=== PATIENT | female | born 1970 | race Caucasian/White ===

== ENCOUNTER → 2016-08-13 | Outpatient (CLI) | payer MEDICAID ==
[2016-08-13 08:05] LABS: Basophils # (A) 0.1 k/uL (0-0.2); Basophils % (A) 1 %; CH 29.5; CHCM 32.9; Eosinophils # (A) 0.2 k/uL (0-0.7); Eosinophils % (A) 4 %; HCT 40.7 % (34.0-46.0); HDW 2.23; HGB 13.1 gm/dL (11.4-16.0); Luc # (Auto) 0.21; Luc % (Auto) 3; Lymphocytes # (A) 1.4 k/uL (1.0-4.8); Lymphocytes % (A) 23 %; MCH 29.1 pg (25.0-35.0); MCHC 32.2 g/dL (31.0-37.0); MCV 90.2 fL (80.0-100.0); Mean Platelet Volume 7.5; Monocytes # (A) 0.3 k/uL (0-1.0); Monocytes % (A) 5 %; Neutrophils # (A) 3.9 k/uL (1.3-7.7); Neutrophils % (A) 65 %; RBC 4.51 m/uL (3.80-5.40); WBC 6.1 k/uL (3.8-10.6); WBC (Perox) 6.49
[2016-08-13 11:07] LABS: Hemoglobin A1C 5.1 % (4.2-6.1)
[2016-08-13 11:54] LABS: ALT 32 U/L (9-52); AST 21 U/L (14-36); Alkaline Phosphatase 71 U/L (38-126); Anion Gap 8 mmol/L; Blood Urea Nitrogen 14 mg/dL (7-17); Carbon Dioxide 23 mmol/L (22-30); Chloride 109 mmol/L (98-107); Cholesterol 175 mg/dL (<200); Glucose 88 mg/dL (74-99); HDL Cholesterol 66 mg/dL (40-60); Non-African American GFR(MDRD) >60 (>60 ml/min/1.73 sqM); Potassium 4.2 mmol/L (3.5-5.1); Sodium 140 mmol/L (137-145); Total Bilirubin 1.1 mg/dL (0.2-1.3); Triglycerides 153 mg/dL (<150)
[2016-08-13 12:40] LABS: Vitamin B12 334 pg/mL (239-931)
== END | disposition home or self-care (01) ==
LOC: LABWHC1 07:41
PROVIDERS: ATTEND Family Medicine
DX: F32.81 Premenstrual dysphoric disorder (principal); G43.909 Migraine, unspecified, not intractable, without status migrainosus; I49.9 Cardiac arrhythmia, unspecified; Z13.220 Encounter for screening for lipoid disorders
CPT/HCPCS: 36415; 80053; 80061; 82306; 82607; 83036; 84439; 84443; 85025

== ENCOUNTER → 2017-06-14 | Outpatient (CLI) | payer MEDICAID ==
--- NOTE | 2017-06-16 08:53 | MM ---
Reason for exam: screening (asymptomatic). Last mammogram was performed 1 year and 4 months ago. History: Took hormonal contraceptives for 15 years. Physical Findings: A clinical breast exam by your physician is recommended on an annual basis and results should be correlated with mammographic findings. MG 3D Screening Mammo W/Cad Bilateral CC and MLO view(s) were taken. Prior study comparison: February 24, 2016, bilateral MG 3d screening mammo w/cad. February 22, 2015, bilateral MG 3d screening mammo w/cad. The breast tissue is extremely dense which could obscure a lesion on mammography. Finding: There is a typically benign high density, circumscribed, but partially obscured round mass in the right breast. There is a large partially circumscribed area middle left breast. New finding since February 24, 2016 and February 22, 2015. ASSESSMENT: Incomplete: need additional imaging evaluation, BI-RAD 0 RECOMMENDATION: Ultrasound of both breasts. [facility] will attempt to contact patient to return for ultrasound.
== END | disposition home or self-care (01) ==
LOC: RADMAMWWP 15:41
PROVIDERS: ATTEND Obstetrics & Gynecology
DX: Z12.31 Encounter for screening mammogram for malignant neoplasm of breast (principal)
CPT/HCPCS: 77063; 77067

== ENCOUNTER → 2017-06-18 | Outpatient (CLI) | payer MEDICAID ==
--- NOTE | 2017-06-21 09:21 | USB ---
Reason for exam: additional evaluation requested from abnormal screening. History: Took hormonal contraceptives for 15 years. Physical Findings: Nurse Summary: right breast movable palpables 11 o'clock 1 x 1cm, non-tender, left breast palpable 1 o'clock 1.5 x 2cm, movable, non-tender (nurse ts). US Breast Workup ASHLEY Right breast ultrasound includes all four quadrants, the retroareolar region and axilla. Finding demonstrates a 1.0 x 1.2 x 0.6cm oval, cystic lesion at 8 o'clock, a 0.6 x 0.6 x 0.5cm oval, cystic lesion at 8 o'clock, a 0.8 x 0.5 x 0.4cm oval, hypoechoic lesion at 8 o'clock for which a ultrasound core biopsy is recommended, a 0.6 x 0.4 x 0.3cm oval, cystic lesion at 9 o'clock, a 1.2 x 1.3 x 0.6cm oval, cystic lesion at 9 o'clock, a 0.4 x 0.4 x 0.2cm oval lesion too small to characterize at 11 o'clock and a 3.2 x 1.4 x 1.4cm axilla node. Left breast ultrasound includes all four quadrants, the retroareolar region and axilla. Finding demonstrates several oval, cystic lesions measuring 1.0 x 0.8 x 0.4cm at 12 o'clock, 1.2 x 1.0 x 0.5cm at 1 o'clock, 1.8 x 2.3 x 0.9cm at 1 o'clock and 0.3 x 0.3 x 0.3cm at 3 o'clock. These results were verbally communicated with the patient and result sheet given to the patient on 06/18/17. ASSESSMENT: Suspicious, BI-RAD 4 RECOMMENDATION: Ultrasound core biopsy of the right breast. Called Dr. Morocho with mammographic findings and has scheduled an appointment for the patient for 07/21/17 at 3:[address] Etienne. Biopsy scheduled for 06/23/17 at 12:20. PRELIMINARY REPORT CALLED AND FAXED TO DR. ETIENNE ON 06/21/17.
== END | disposition home or self-care (01) ==
LOC: RADUSWWP 07:37
PROVIDERS: ATTEND Obstetrics & Gynecology
DX: R92.8 Other abnormal and inconclusive findings on diagnostic imaging of breast (principal)

== ENCOUNTER → 2017-06-23 | Day surgery (SDC) | payer MEDICAID ==
[2017-06-23 11:42] VITALS: BP 128/81; RESP 12
[2017-06-23 12:44] VITALS: PULSE 72; TEMP 98.8
--- NOTE | 2017-06-23 14:33 | USB ---
EXAMINATION TYPE: US biopsy breast VAD RT, MG diagnostic mammo RT wo CAD, US breast aspiration single RT DATE OF EXAM: 06/23/2017 CLINICAL HISTORY: R92.8 ABN MAMMO. TECHNIQUE: Ultrasound guided core biopsy of right breast. COMPARISON: 06/18/2017 FINDINGS: The procedure of ultrasound guided core biopsy was explained to the patient. Benefits, alternatives, and risks were discussed. An informed consent was then obtained. Preprocedural timeout was performed. Preprocedural ultrasound images demonstrate increased through transmission and therefore the possibility of a complicated cyst was considered an attempted aspiration was performed prior to biopsy. The patient was placed in supine positioning for imaging and for the procedure. The overlying skin was prepped and draped in usual sterile fashion. 10 cc of lidocaine buffered with bicarbonate was used as anesthetic into the skin and subcutaneous tissue up to the 0.8 x 0.3 cm mass at the 8:00 position within the right breast. Under ultrasound guidance, an 18-gauge spinal needle was advanced into the mass with only scant amount of hemorrhagic fluid returning. Therefore subsequently a 12-gauge vacuum assisted biopsy gun device was used to obtain 4 core samples. Following this, a ribbon-shaped biopsy marker was left in lesion. The patient tolerated the procedure well without any immediate complication. The patient was kept in the radiology department for short stay after the procedure and then discharged home in stable condition. IMPRESSION: Successful, uncomplicated ultrasound guided core biopsy of area of a 0.8 x 0.3 cm mass, possibly a complicated cyst, at the 8:00 position within the right breast, full pathology results to follow. Pathology Results: Benign BREAST, RIGHT, EIGHT O'CLOCK, ASPIRATE: VIRTUALLY ACELLULAR SPECIMEN CONSISTING OF INFLAMMATORY CELLS AND DEGENERATED CELLULAR MATERIAL; NON- DIAGNOSTIC. BREAST, RIGHT, EIGHT O'CLOCK, CORE BIOPSY: FIBROCYSTIC CHANGES INCLUDING DENSE STROMAL FIBROSIS AND SMALL CYSTS. Recommendation Follow up ultrasound of the right breast in 6 months. COLIN
== END ==
LOC: RADUSWWP 11:27
PROVIDERS: ATTEND Surgery
DX: N60.31 Fibrosclerosis of right breast (principal)
CPT/HCPCS: 88305; 88173; 77065; 76942; 19000; 19083; A4648; J2001

== ENCOUNTER → 2017-08-20 | Day surgery (SDC) | payer MEDICAID ==
[2017-08-17 15:55] VITALS: BMI 31.9
[~2017-08-20] MED LIST: LACTATED RINGERS 1,000 ML IV SCH; LIDOCAINE 1% 20 ML VIAL (10MG/ML) FOR IV START INTRADERMA ONE; LIDOCAINE 1% INJ 10MG/ML (20 ML MDV) ONE; PROPOFOL 10 MG/ML 20 ML VIAL IV ONE
[2017-08-20 10:47] VITALS: TEMP 98.5
--- NOTE | 2017-08-20 11:23 | P.GSHP ---
History of Present Illness H&P Date: 08/20/17 Chief Complaint: Rectal bleeding Patient here today for colonoscopy. She has not had a colonoscopy previously. She has multiple family members with colon cancer although no first-degree relatives. She does have intermittent rectal bleeding at times. She is concerned she may have a fissure. Past Medical History Past Medical History: GERD/Reflux Additional Past Medical History / Comment(s): recent blood in stool, family hx. colon cancer-cousin,aunt,grandfather History of Any Multi-Drug Resistant Organisms: None Reported Past Surgical History: No Surgical Hx Reported Additional Past Surgical History / Comment(s): EGD Past Anesthesia/Blood Transfusion Reactions: No Reported Reaction Additional Past Anesthesia/Blood Transfusion Reaction / Comment(s): never had anesthesia Smoking Status: Former smoker - Past Family History Father Family Medical History: Cancer Medications and Allergies Home Medications Medication Instructions Recorded Confirmed Type Control 1 tab PO DAILY 04/17/15 08/17/17 History Ibuprofen [Motrin] 200 - 400 mg PO Q6HR PRN 04/17/15 08/20/17 History Multivit with Calcium,Iron,Min 1 each PO DAILY 04/17/15 08/17/17 History [Women's Daily Multivitamin] Fluticasone Nasal [place] [Flonase 2 spray NASAL DAILY PRN 04/19/15 08/20/17 History Nasal [place]] Pantoprazole [Protonix] 40 mg PO DAILY #90 tablet. 04/19/15 08/17/17 Rx Allergies Allergy/AdvReac Type Severity Reaction Status Date / Time No Known Allergies Allergy Verified 08/17/17 15:52 Surgical - Exam Vital Signs Temp Pulse Resp BP Pulse Ox 98.5 F 82 16 119/65 97 08/20/17 10:45 08/20/17 10:45 08/20/17 10:45 08/20/17 10:45 08/20/17 10:45 Physical exam: General: Well-developed, well-nourished HEENT: Normocephalic, sclerae nonicteric Abdomen: Nontender, nondistended Extremities: No edema Neuro: Alert and oriented Assessment and Plan (1) Rectal bleeding Narrative/Plan: Will proceed with colonoscopy at this time Current Visit: Yes Status: Acute Code(s): K62.5 - HEMORRHAGE OF ANUS AND RECTUM SNOMED Code(s): 14530081
--- NOTE | 2017-08-20 11:40 | P.PCN ---
Date of Procedure: 08/20/17 Procedure(s) Performed: PREOPERATIVE DIAGNOSIS: Rectal bleeding, change in bowel habits POSTOPERATIVE DIAGNOSIS: Small sigmoid polyp, mild diverticulosis PROCEDURE: Colonoscopy with biopsy ANESTHESIA: MAC SURGEON: Destin Lacey M.D. SPECIMENS: Sigmoid polyp ENDOSCOPIC PROCEDURE: The patient was placed on the endoscopy table in the left decubitus position. The Olympus colonoscope was inserted into the anus and passed under direct visualization to the base of the cecum. The appendiceal orifice was visualized. From that point the scope was slowly withdrawn inspecting all surfaces carefully. There were no neoplastic inflammatory or polypoid lesions throughout the cecum, ascending, transverse, and descending colon. In the sigmoid colon a small polyp was identified and removed using the cold biopsy forceps. The remainder of the sigmoid and rectum appeared normal. There was mild left-sided diverticulosis. Digital rectal examination revealed some scarring posteriorly likely on the basis of a healed anal fissure. This may have been the source of recent bleeding. The patient was taken to the recovery room in stable condition per anesthesia guidelines. RECOMMENDATIONS: Await biopsy results.
[2017-08-20 11:46] VITALS: RESP 18
[2017-08-20 12:16] VITALS: BP 126/79; PULSE 74
== END ==
LOC: ORWHC2ENDO 10:14
PROVIDERS: ATTEND Surgery
DX: K63.5 Polyp of colon (principal); K57.30 Diverticulosis of large intestine without perforation or abscess without bleeding; Z87.19 Personal history of other diseases of the digestive system; K21.9 Gastro-esophageal reflux disease without esophagitis; Z80.0 Family history of malignant neoplasm of digestive organs; Z79.51 Long term (current) use of inhaled steroids; Z79.52 Long term (current) use of systemic steroids; Z79.3 Long term (current) use of hormonal contraceptives; Z79.899 Other long term (current) drug therapy; Z87.891 Personal history of nicotine dependence
CPT/HCPCS: 81025; 88305; 45380; J2001; J2704

== ENCOUNTER → 2017-12-27 | Outpatient (CLI) | payer MEDICAID ==
--- NOTE | 2017-12-27 11:46 | USB ---
Reason for exam: follow-up at short interval from prior study. History: Benign US breast aspiration single RT of the right breast, June 23, 2017. Benign US biopsy breast VAD RT of the right breast, June 23, 2017. Took hormonal contraceptives for 15 years. Physical Findings: Nurse Summary: US Breast RT Right complete breast ultrasound includes all four quadrants, the retroareolar region and axilla. Finding demonstrates a 0.6 x 0.6 x 0.2cm oval, cystic, complex cluster at 12 o'clock, a 0.9 x 1.0 x 0.6cm oval, cystic lesion at 8 o'clock, a 0.9 x 0.8 x 0.5cm oval, cystic, debris filled lesion at 9 o'clock and a 1.4 x 1.4 x 0.8cm oval, cystic lesion at 9 o'clock. These results were verbally communicated with the patient and result sheet given to the patient on 12/27/17. ASSESSMENT: Probably benign, BI-RAD 3 RECOMMENDATION: Follow-up diagnostic mammogram of both breasts in 6 months. Back on schedule.
== END | disposition home or self-care (01) ==
LOC: RADUSWWP 10:14
PROVIDERS: ATTEND Surgery
DX: R92.8 Other abnormal and inconclusive findings on diagnostic imaging of breast (principal)

== ENCOUNTER → 2018-07-13 | Outpatient (CLI) | payer MEDICAID ==
[2018-07-13 10:53] LABS: Basophils # (A) 0.1 k/uL (0-0.2); Basophils % (A) 1 %; Eosinophils # (A) 0.1 k/uL (0-0.7); Eosinophils % (A) 1 %; HCT 39.1 % (34.0-46.0); HGB 12.8 gm/dL (11.4-16.0); Lymphocytes # (A) 3.9 k/uL (1.0-4.8); Lymphocytes % (A) 39 %; MCH 28.5 pg (25.0-35.0); MCHC 32.7 g/dL (31.0-37.0); MCV 87.1 fL (80.0-100.0); Mean Platelet Volume 7.6; Monocytes # (A) 0.6 k/uL (0-1.0); Monocytes % (A) 6 %; Neutrophils % (A) 51 %; Platelet Count 353 k/uL (150-450); RBC 4.48 m/uL (3.80-5.40); WBC 9.9 k/uL (3.8-10.6)
[2018-07-13 13:10] LABS: Erythrocyte Sedimentation Rate 15 mm/hr (0-20)
[2018-07-13 18:07] LABS: Hemoglobin A1C 5.1 % (4.0-6.0)
[2018-07-13 18:27] LABS: Vitamin D 25 Hydroxy 18.3 ng/mL (30.0-100.0)
[2018-07-13 19:19] LABS: ALT 38 U/L (8-44); AST 23 U/L (13-35); Albumin/Globulin Ratio 1.68 (1.60-3.17); Alkaline Phosphatase 63 U/L (41-126); C Reactive Protein <0.4 mg/dL (0.0-0.8); Calcium 8.8 mg/dL (8.7-10.3); Carbon Dioxide 23.4 mmol/L (21.6-31.8); Chloride 109 mmol/L (96-109); Cholesterol 169 mg/dL (0-200); Globulin 2.5 g/dL (1.6-3.3); Glucose 80 mg/dL (70-110); Potassium 3.8 mmol/L (3.5-5.5); Sodium 142 mmol/L (135-145); Total Protein 6.7 g/dL (6.2-8.2)
== END | disposition home or self-care (01) ==
LOC: LABWHC1 09:02
PROVIDERS: ATTEND Family Medicine
DX: G43.011 Migraine without aura, intractable, with status migrainosus (principal); E78.1 Pure hyperglyceridemia; J32.0 Chronic maxillary sinusitis; E53.8 Deficiency of other specified B group vitamins
CPT/HCPCS: 36415; 80053; 80061; 82306; 82607; 83036; 84443; 85025; 85652; 86038; 86140

== ENCOUNTER → 2018-07-14 | Outpatient (CLI) | payer MEDICAID ==
--- NOTE | 2018-07-14 10:17 | CT ---
EXAMINATION TYPE: CT brain wo/w con DATE OF EXAM: 07/14/2018 COMPARISON: None INDICATION: vertigo, NUNO, intractable migraine G 43.011 DLP: 1865.7 mGycm, Automated exposure control for dose reduction was used. CONTRAST: 100 mL Isovue-300 CT of the brain is performed utilizing 3 mm thick sections through the posterior fossa and 3 mm thick sections through the remaining calvarium. Study is performed within 24 hours of arrival to the hosp [facility]. No abnormal hyperdensity is present to suggest an acute intracranial hemorrhage. No mass lesion is evident. No acute infarcts are evident. Ventricles and sulci are appropriate for the patient age. Paranasal sinuses and mastoid air cells within the [id number] are clear. No abnormal enhancement is evident. IMPRESSIONS: 1. Normal pre and postcontrast CT brain
== END | disposition home or self-care (01) ==
LOC: RADCTMAIN 07:17
PROVIDERS: ATTEND Family Medicine
DX: G43.011 Migraine without aura, intractable, with status migrainosus (principal)
CPT/HCPCS: 70470; Q9967

== ENCOUNTER → 2018-07-29 | Outpatient (CLI) | payer MEDICAID ==
--- NOTE | 2018-07-29 13:49 | MM ---
Reason for exam: additional evaluation requested from prior study. Last mammogram was performed 1 year and 1 month ago. History: Benign US breast aspiration single RT of the right breast, June 23, 2017. Benign US biopsy breast VAD RT of the right breast, June 23, 2017. Taking hormonal contraceptives for 15 years. Physical Findings: Nurse did not find any significant physical abnormalities on exam. MG 3D Diag Mammo W/Cad ASHLEY Bilateral CC, MLO, and XCCL view(s) were taken. Prior study comparison: June 23, 2017, right breast MG diagnostic mammo RT wo CAD. June 14, 2017, bilateral MG 3d screening mammo w/cad. The breast tissue is heterogeneously dense. This may lower the sensitivity of mammography. Finding: There are typically benign stable obscured round masses in both breasts. Previous mammotome biopsy in the right breast. No significant changes in finding since June 23, 2017 and June 14, 2017. These results were verbally communicated with the patient and result sheet given to the patient on 07/29/18. ASSESSMENT: Benign, BI-RAD 2 RECOMMENDATION: Routine screening mammogram of both breasts in 1 year.
== END ==
LOC: RADMAMWWP 09:00
PROVIDERS: ATTEND Surgery
DX: R92.8 Other abnormal and inconclusive findings on diagnostic imaging of breast (principal)
CPT/HCPCS: 77062; 77066

== ENCOUNTER 2018-09-15 05:41 | Inpatient (IN) | payer MEDICAID ==
[2018-09-15] MEDS ORDERED: ONDANSETRON 4 MG/2 ML VIAL IVP STA (06:05)
[2018-09-15] MEDS ORDERED: KETOROLAC 30 MG/ML 1 ML VIAL IVP STA (06:05)
--- NOTE | 2018-09-15 06:08 | ED ---
Abdominal Pain HPI - General Source: patient Mode of arrival: ambulatory Limitations: no limitations - History of Present Illness MD Complaint: abdominal pain Onset/Timin -: hour(s) Location: RUQ, epigastric Radiation: back Migration to: no migration Severity: severe Quality: aching Consistency: constant Improves With: nothing Worsens With: nothing Associated Symptoms: nausea - Related Data LMP (females 10-50): last week Patient : No <Joni Brewer - Last Filed: 09/15/18 06:08> <Toni Chairez - Last Filed: 09/15/18 08:40> - General Chief Complaint: Abdominal Pain Stated Complaint: Abd Pain Time Seen by Provider: 09/15/18 05:58 - History of Present Illness Initial Comments: This patient's 48-year-old woman who presents with complaint of right upper quadrant epigastric pain that started between midnight and 1 AM while she was trying sleep. Patient states the pain is constant, aching, severe. She has not noted relieving factors. The pain may be slightly worse if she presses on it. The pain does seem to radiate towards her back. She does have associated nausea but has not had vomiting. Last bowel movement was last night and was normal. No change in urination. Last menstrual period last week and was normal. She does states she has had similar pain though less severe last week and thought that it may be related to gallbladder. (Joni Brewre) - Related Data Home Medications Medication Instructions Recorded Confirmed Ibuprofen [Motrin] 200 - 400 mg PO Q6HR PRN 04/17/15 09/15/18 Fluticasone Nasal [place] [Flonase 2 spray NASAL DAILY 04/19/15 09/15/18 Nasal [place]] Fexofenadine/Pseudoephedrine 1 tab PO DAILY PRN 09/15/18 09/15/18 [Paula-D 24 Hour Tablet] Juleber 1 tab PO HS 09/15/18 09/15/18 Previous Rx's Medication Instructions Recorded Pantoprazole [Protonix] 40 mg PO DAILY #90 tablet. 04/19/15 Allergies Allergy/AdvReac Type Severity Reaction Status Date / Time No Known Allergies Allergy Verified 09/15/18 07:57 Review of Systems ROS Other: All systems not noted in ROS Statement are negative. Constitutional: Denies: fever, chills Respiratory: Denies: cough, dyspnea Cardiovascular: Denies: chest pain, palpitations, edema, syncope Gastrointestinal: Reports: abdominal pain, nausea. Denies: vomiting, diarrhea, constipation, melena, hematochezia Genitourinary: Denies: dysuria, hematuria, abnormal menses Musculoskeletal: Denies: back pain Skin: Denies: rash Neurological: Denies: headache, weakness, numbness <Joni Brewer - Last Filed: 09/15/18 06:08> ROS Other: All systems not noted in ROS Statement are negative. <MihaelaToni D - Last Filed: 09/15/18 08:40> ROS Statement: Those systems with pertinent positive or pertinent negative responses have been documented in the HPI. Past Medical History Past Medical History: GERD/Reflux Additional Past Medical History / Comment(s): recent blood in stool, family hx. colon cancer-cousin,aunt,grandfather History of Any Multi-Drug Resistant Organisms: None Reported Past Surgical History: No Surgical Hx Reported Additional Past Surgical History / Comment(s): EGD Past Anesthesia/Blood Transfusion Reactions: No Reported Reaction Additional Past Anesthesia/Blood Transfusion Reaction / Comment(s): never had anesthesia Past Psychological History: No Psychological Hx Reported Smoking Status: Former smoker Past Alcohol Use History: None Reported Past Drug Use History: None Reported - Past Family History Father Family Medical History: Cancer <Joni Brewer - Last Filed: 09/15/18 06:08> General Exam Limitations: no limitations General appearance: alert, in no apparent distress Head exam: Present: atraumatic, normocephalic Eye exam: Present: normal appearance. Absent: scleral icterus, conjunctival injection ENT exam: Present: normal oropharynx Neck exam: Present: normal inspection Respiratory exam: Present: normal lung sounds bilaterally. Absent: respiratory distress, wheezes, rales, rhonchi, stridor Cardiovascular Exam: Present: regular rate, normal rhythm, normal heart sounds. Absent: systolic murmur, diastolic murmur, rubs, gallop GI/Abdominal exam: Present: soft, tenderness (Right upper Quadrant and gastric areas, mild tenderness without rebound or guarding.), normal bowel sounds. Absent: distended, guarding, rebound, rigid, mass, pulsatile mass, hernia Extremities exam: Present: normal inspection, normal capillary refill. Absent: pedal edema, calf tenderness Back exam: Present: normal inspection. Absent: tenderness, CVA tenderness (R), CVA tenderness (L) Neurological exam: Present: alert Skin exam: Present: warm, dry, intact, normal color. Absent: rash <JennifergianJoni - Last Filed: 09/15/18 06:08> Course Vital Signs 09/15/18 05:44 Temperature 98.0 F Pulse Rate 96 Respiratory 18 Rate Blood Pressure 121/76 O2 Sat by Pulse 98 Oximetry Medical Decision Making - Lab Data Result diagrams: 09/15/18 06:05 09/15/18 06:05 <Toni Chairez - Last Filed: 09/15/18 08:40> - Medical Decision Making Patient care signed out to me by previous shift physician. Patient is a 48-year-old female presents with right upper quadrant abdominal pain. She has normal vitals. She also has normal abdominal labs. Plan at signout was to follow up with abdominal ultrasound and reevaluate for abdominal symptoms. Labs reviewed, pending abdominal ultrasound radiology read.She is on results were reviewed by myself and radiologist. There appears to be 2.8 cm gallbladder stone. There is possible pericholecystic fluid. Radiologist read it as currently for acute cholecystitis. Labs does not suggest acute cholecystitis. Clinical presentation is not suggestive of acute cholecystitis. Clinical presentation is likely consistent with symptomatic cholelithiasis however given radiology read patient case was discussed with general surgeon on-call Dr. Lacey. Dr. Lacey suggests that patient be scheduled for laparoscopic cholecystectomy today. Patient is understandable agreeable to plan. She'll be [facility] to [facility]. She is to remain nothing by mouth at this time until further notice from general surgery. (Toni Chairez) - Lab Data Lab Results 09/15/18 09/15/18 09/15/18 Range/Units 06:05 06:05 07:06 WBC 8.8 (3.8-10.6) k/uL RBC 4.34 (3.80-5.40) m/uL Hgb 12.3 (11.4-16.0) gm/dL Hct 37.2 (34.0-46.0) % MCV 85.8 (80.0-100.0) fL MCH 28.4 (25.0-35.0) pg MCHC 33.1 (31.0-37.0) g/dL RDW 13.5 (11.5-15.5) % Plt Count 287 (150-450) k/uL Neutrophils % 67 % Lymphocytes % 19 % Monocytes % 6 % Eosinophils % 3 % Basophils % 1 % Neutrophils # 5.9 (1.3-7.7) k/uL Lymphocytes # 1.7 (1.0-4.8) k/uL Monocytes # 0.6 (0-1.0) k/uL Eosinophils # 0.2 (0-0.7) k/uL Basophils # 0.1 (0-0.2) k/uL Sodium 138 (137-145) mmol/L Potassium 4.3 (3.5-5.1) mmol/L Chloride 109 H (98-107) mmol/L Carbon Dioxide 21 L (22-30) mmol/L Anion Gap 8 mmol/L BUN 15 (7-17) mg/dL Creatinine 0.72 (0.52-1.04) mg/dL Est GFR (CKD-EPI)AfAm >90 (>60 ml/min/1.73 sqM) Est GFR (CKD-EPI)NonAf >90 (>60 ml/min/1.73 sqM) Glucose 102 H (74-99) mg/dL Calcium 9.3 (8.4-10.2) mg/dL Total Bilirubin 1.0 (0.2-1.3) mg/dL AST 23 (14-36) U/L ALT 23 (9-52) U/L Alkaline Phosphatase 82 (38-126) U/L Total Protein 6.9 (6.3-8.2) g/dL Albumin 3.9 (3.5-5.0) g/dL Amylase 52 (30-110) U/L Lipase 224 (23-300) U/L Urine Color Urine Appearance (Clear) Urine pH (5.0-8.0) Ur Specific Gould (1.001-1.035) Urine Protein (Negative) Urine Glucose (UA) (Negative) Urine Ketones (Negative) Urine Blood (Negative) Urine Nitrite (Negative) Urine Bilirubin (Negative) Urine Urobilinogen (<2.0) mg/dL Ur Leukocyte Esterase (Negative) Urine RBC (0-5) /hpf Urine WBC (0-5) /hpf Urine Mucus (None) /hpf Urine HCG, Qual Not Detected (Not Detectd) 09/15/18 Range/Units 07:06 WBC (3.8-10.6) k/uL RBC (3.80-5.40) m/uL Hgb (11.4-16.0) gm/dL Hct (34.0-46.0) % MCV (80.0-100.0) fL MCH (25.0-35.0) pg MCHC (31.0-37.0) g/dL RDW (11.5-15.5) % Plt Count (150-450) k/uL Neutrophils % % Lymphocytes % % Monocytes % % Eosinophils % % Basophils % % Neutrophils # (1.3-7.7) k/uL Lymphocytes # (1.0-4.8) k/uL Monocytes # (0-1.0) k/uL Eosinophils # (0-0.7) k/uL Basophils # (0-0.2) k/uL Sodium (137-145) mmol/L Potassium (3.5-5.1) mmol/L Chloride (98-107) mmol/L Carbon Dioxide (22-30) mmol/L Anion Gap mmol/L BUN (7-17) mg/dL Creatinine (0.52-1.04) mg/dL Est GFR (CKD-EPI)AfAm (>60 ml/min/1.73 sqM) Est GFR (CKD-EPI)NonAf (>60 ml/min/1.73 sqM) Glucose (74-99) mg/dL Calcium (8.4-10.2) mg/dL Total Bilirubin (0.2-1.3) mg/dL AST (14-36) U/L ALT (9-52) U/L Alkaline Phosphatase (38-126) U/L Total Protein (6.3-8.2) g/dL Albumin (3.5-5.0) g/dL Amylase (30-110) U/L Lipase (23-300) U/L Urine Color Yellow Urine Appearance Clear (Clear) Urine pH 5.5 (5.0-8.0) Ur Specific Gould 1.023 (1.001-1.035) Urine Protein Negative (Negative) Urine Glucose (UA) Negative (Negative) Urine Ketones Negative (Negative) Urine Blood Small H (Negative) Urine Nitrite Negative (Negative) Urine Bilirubin Negative (Negative) Urine Urobilinogen <2.0 (<2.0) mg/dL Ur Leukocyte Esterase Negative (Negative) Urine RBC 2 (0-5) /hpf Urine WBC <1 (0-5) /hpf Urine Mucus Rare H (None) /hpf Urine HCG, Qual (Not Detectd) Disposition <Joni Brewer - Last Filed: 09/15/18 06:08> Decision Time: 08:40 <Toni Chairez - Last Filed: 09/15/18 08:40> Clinical Impression: Right upper quadrant abdominal pain Disposition: ADMITTED IP TO THIS HOSP Condition: Fair Referrals: Makenna Colin MD [Primary Care Provider] - 1-2 days
[2018-09-15 06:18] LABS: Basophils # (A) 0.1 k/uL (0-0.2); Basophils % (A) 1 %; Eosinophils # (A) 0.2 k/uL (0-0.7); Eosinophils % (A) 3 %; HCT 37.2 % (34.0-46.0); HGB 12.3 gm/dL (11.4-16.0); Lymphocytes # (A) 1.7 k/uL (1.0-4.8); Lymphocytes % (A) 19 %; MCH 28.4 pg (25.0-35.0); MCHC 33.1 g/dL (31.0-37.0); MCV 85.8 fL (80.0-100.0); Monocytes # (A) 0.6 k/uL (0-1.0); Monocytes % (A) 6 %; Neutrophils # (A) 5.9 k/uL (1.3-7.7); Neutrophils % (A) 67 %; Platelet Count 287 k/uL (150-450); RBC 4.34 m/uL (3.80-5.40); RDW 13.5 % (11.5-15.5); WBC 8.8 k/uL (3.8-10.6)
[2018-09-15 06:27] LABS: ALT 23 U/L (9-52); AST 23 U/L (14-36); African American GFR (CKD) >90 (>60 ml/min/1.73 sqM); Albumin 3.9 g/dL (3.5-5.0); Alkaline Phosphatase 82 U/L (38-126); Amylase 52 U/L (30-110); Anion Gap 8 mmol/L; Blood Urea Nitrogen 15 mg/dL (7-17); Calcium 9.3 mg/dL (8.4-10.2); Carbon Dioxide 21 mmol/L (22-30); Chloride 109 mmol/L (98-107); Glucose 102 mg/dL (74-99); Lipase 224 U/L (23-300); Potassium 4.3 mmol/L (3.5-5.1); Sodium 138 mmol/L (137-145); Total Protein 6.9 g/dL (6.3-8.2)
[2018-09-15 07:29] LABS: Appearance,Urine Clear (Clear); Bilirubin,Urine Negative (Negative); Blood,Urine Small (Negative); Color,Urine Yellow; Glucose,Urine (UA) Negative (Negative); Ketones,Urine Negative (Negative); Leukocyte Esterase,Urine Negative (Negative); Mucus,Urine Rare /hpf; Nitrite,Urine Negative (Negative); PH, Urine 5.5 (5.0-8.0); Protein,Urine Negative (Negative); RBC,Urine 2 /hpf (0-5); Specific Gravity,Urine 1.023 (1.001-1.035); Urobilinogen,Urine <2.0 mg/dL (<2.0); WBC,Urine <1 /hpf (0-5)
--- NOTE | 2018-09-15 07:40 | US ---
EXAMINATION TYPE: US abdomen limited DATE OF EXAM: 09/15/2018 COMPARISON: NONE CLINICAL HISTORY: Pain, attention RUQ. Pt states RUQ pain, GERD, nausea EXAM MEASUREMENTS: Liver Length: 15.0 cm Gallbladder Wall: 0.4 cm CBD: 0.7 cm Right Kidney: 10.4 x 4.7 x 5.6 cm Pancreas: wnl, tail obscured by overlying bowel gas Liver: wnl Gallbladder: Stone within fundus= 2.8 cm, wall thickened, possible pericholecystic fluid Evidence for sonographic Myers's sign: No CBD: wnl Right Kidney: wnl IMPRESSION: 1. Cholelithiasis with thickened gallbladder wall: Suggestion pericholecystic fluid correlate for cho lecystitis
[2018-09-15] MEDS ORDERED: ACETAMINOPHEN TAB 325 MG TAB PO PRN (08:40)
[2018-09-15] MEDS ORDERED: NALOXONE 0.4 MG/ML 1 ML VIAL IV PRN (08:40)
[2018-09-15] MEDS ORDERED: MORPHINE SULFATE 2 MG/ML SYRINGE IV PRN (08:40)
[2018-09-15] MEDS: SODIUM CHLORIDE 0.9% 1,000 ML IV SCH ×2 (09:06→22:50)
[2018-09-15 11:25] VITALS: BMI 32.7
[2018-09-15] MEDS ORDERED: IV FLUID CONTINUATION 1,000 ML IV ONE (12:29)
[2018-09-15] MEDS ORDERED: ONDANSETRON 4 MG/2 ML VIAL IVP ONE ×2 (12:50→15:50)
[2018-09-15] MEDS ORDERED: DEXAMETHASONE SOD PHOSPHATE 10 MG/ML 1 ML VIAL IV ONE (12:51)
[2018-09-15] MEDS ORDERED: SCOPOLAMINE 1.5MG/72HR PATCH TRANSDERM ONE (12:52)
[2018-09-15] MEDS ORDERED: HEPARIN SODIUM,PORCINE 5,000 UNIT/ML 1 ML VIAL SQ ONE (13:20)
[2018-09-15] MEDS ORDERED: PIPERACILLIN-TAZOBACTAM 3.375 GM in SODIUM CHLORIDE 0.9% 100 ML IVPB STA (13:20)
--- NOTE | 2018-09-15 13:20 | P.GSHP ---
History of Present Illness H&P Date: 09/15/18 Chief Complaint: Acute cholecystitis Patient presents to ER with complaints of right upper quadrant pain that began at 1 in the morning. Similar episode one week ago. Pain is improved but persistent. Labs are normal. No nausea or vomiting. Appetite diminished. Ultrasound shows a large gallstone with some gallbladder wall thickening. No change in the color of her skin urine or stool. - Review of Systems Comment: The patient denies any acute changes in vision or hearing, no dysphagia or odynophagia, no chest pain or shortness of breath, no dysuria or hematuria, no headache, no runny nose, no rectal bleeding or melena, no unexplained weight loss Past Medical History Past Medical History: GERD/Reflux Additional Past Medical History / Comment(s): hx blood in stool,colonscopy negative family hx. colon cancer-cousin,aunt,grandfather History of Any Multi-Drug Resistant Organisms: None Reported Past Surgical History: No Surgical Hx Reported Additional Past Surgical History / Comment(s): EGD Past Anesthesia/Blood Transfusion Reactions: No Reported Reaction Additional Past Anesthesia/Blood Transfusion Reaction / Comment(s): never had anesthesia Past Psychological History: No Psychological Hx Reported Smoking Status: Former smoker Past Alcohol Use History: None Reported Additional Past Alcohol Use History / Comment(s): quit 2013, smoked for 20 yrs. Past Drug Use History: None Reported - Past Family History Father Family Medical History: Cancer Additional Family Medical History / Comment(s): lung Medications and Allergies Home Medications Medication Instructions Recorded Confirmed Type Ibuprofen [Motrin] 200 - 400 mg PO Q6HR PRN 04/17/15 09/15/18 History Fluticasone Nasal [place] [Flonase 2 spray NASAL DAILY 04/19/15 09/15/18 History Nasal [place]] Pantoprazole [Protonix] 40 mg PO DAILY #90 tablet. 04/19/15 09/15/18 Rx Fexofenadine/Pseudoephedrine 1 tab PO DAILY PRN 09/15/18 09/15/18 History [Paula-D 24 Hour Tablet] Juleber 1 tab PO HS 09/15/18 09/15/18 History Allergies Allergy/AdvReac Type Severity Reaction Status Date / Time No Known Allergies Allergy Verified 09/15/18 07:57 Surgical - Exam Vital Signs Temp Pulse Resp BP Pulse Ox 98.0 F 96 18 121/76 98 09/15/18 05:44 09/15/18 05:44 09/15/18 05:44 09/15/18 05:44 09/15/18 05:44 Physical exam: General: Well-developed, well-nourished HEENT: Normocephalic, sclerae nonicteric Abdomen: Mild right upper quadrant tenderness, nondistended Extremities: No edema Neuro: Alert and oriented Results - Labs 09/15/18 06:05 09/15/18 06:05 Abnormal Lab Results - Last 24 Hours (Table) 09/15/18 09/15/18 Range/Units 06:05 07:06 Chloride 109 H (98-107) mmol/L Carbon Dioxide 21 L (22-30) mmol/L Glucose 102 H (74-99) mg/dL Urine Blood Small H (Negative) Urine Mucus Rare H (None) /hpf Diabetes panel 09/15/18 Range/Units 06:05 Sodium 138 (137-145) mmol/L Potassium 4.3 (3.5-5.1) mmol/L Chloride 109 H (98-107) mmol/L Carbon Dioxide 21 L (22-30) mmol/L BUN 15 (7-17) mg/dL Creatinine 0.72 (0.52-1.04) mg/dL Glucose 102 H (74-99) mg/dL Calcium 9.3 (8.4-10.2) mg/dL AST 23 (14-36) U/L ALT 23 (9-52) U/L Alkaline Phosphatase 82 (38-126) U/L Total Protein 6.9 (6.3-8.2) g/dL Albumin 3.9 (3.5-5.0) g/dL Calcium panel 09/15/18 Range/Units 06:05 Calcium 9.3 (8.4-10.2) mg/dL Albumin 3.9 (3.5-5.0) g/dL Pituitary panel 09/15/18 Range/Units 06:05 Sodium 138 (137-145) mmol/L Potassium 4.3 (3.5-5.1) mmol/L Chloride 109 H (98-107) mmol/L Carbon Dioxide 21 L (22-30) mmol/L BUN 15 (7-17) mg/dL Creatinine 0.72 (0.52-1.04) mg/dL Glucose 102 H (74-99) mg/dL Calcium 9.3 (8.4-10.2) mg/dL Adrenal panel 09/15/18 Range/Units 06:05 Sodium 138 (137-145) mmol/L Potassium 4.3 (3.5-5.1) mmol/L Chloride 109 H (98-107) mmol/L Carbon Dioxide 21 L (22-30) mmol/L BUN 15 (7-17) mg/dL Creatinine 0.72 (0.52-1.04) mg/dL Glucose 102 H (74-99) mg/dL Calcium 9.3 (8.4-10.2) mg/dL Total Bilirubin 1.0 (0.2-1.3) mg/dL AST 23 (14-36) U/L ALT 23 (9-52) U/L Alkaline Phosphatase 82 (38-126) U/L Total Protein 6.9 (6.3-8.2) g/dL Albumin 3.9 (3.5-5.0) g/dL Assessment and Plan (1) Acute cholecystitis due to biliary calculus Narrative/Plan: Start IV antibiotics. Proceed with laparoscopic possible open cholecystectomy. Risks of bleeding, infection, bile leak, bile duct injury, retained common bile duct stone, trocar injury, conversion to an open procedure, hernia, anesthesia related complications were reviewed. The patient understands and wishes to proceed. Current Visit: Yes Status: Acute Code(s): K80.00 - CALCULUS OF GALLBLADDER W ACUTE CHOLECYST W/O OBSTRUCTION SNOMED Code(s): 35104456008289
[2018-09-15] MEDS ORDERED: HEPARIN SODIUM,PORCINE 5,000 UNIT/ML 1 ML VIAL SQ STA (13:21)
[2018-09-15] MEDS ORDERED: PROPOFOL 10 MG/ML 20 ML VIAL IV ONE (13:44)
[2018-09-15] MEDS ORDERED: KETOROLAC 30 MG/ML 1 ML VIAL ONE (13:44)
[2018-09-15] MEDS ORDERED: NEOSTIGMINE 1 MG/ML 10 ML VIAL ONE (13:44)
[2018-09-15] MEDS ORDERED: GLYCOPYRROLATE 0.2 MG/ML 2 ML VIAL ONE (13:44)
[2018-09-15] MEDS ORDERED: MIDAZOLAM 2 MG/2 ML VIAL ONE (13:44)
[2018-09-15] MEDS ORDERED: fentaNYL (PF) 50 MCG/ML 2 ML AMP ONE (13:44)
[2018-09-15] MEDS ORDERED: ROCURONIUM BROMIDE 10 MG/ML 10 ML VIAL IV ONE (13:44)
[2018-09-15] MEDS ORDERED: LIDOCAINE 1% INJ 10MG/ML (20 ML MDV) ONE (13:44)
[2018-09-15] MEDS ORDERED: SUCCINYLCHOLINE CHLORIDE 100 MG/5 ML SYR IV ONE (13:44)
[2018-09-15] MEDS ORDERED: HYDROmorphone (PF) 1 MG/ML ONE (13:44)
[2018-09-15] MEDS ORDERED: LACTATED RINGERS 1,000 ML IV ONE ×2 (14:00)
[2018-09-15] MEDS ORDERED: BUPIVACAIN-EPI 0.25%-1:200,000 30 ML VIAL SQ ONE (14:14)
[2018-09-15] MEDS ORDERED: HYDROmorphone 1 MG/ML 1 ML SYRINGE IM PRN (15:11)
[2018-09-15] MEDS ORDERED: HYDROcodone/APAP 5-325MG 1 EACH TAB PO PRN (15:11)
--- NOTE | 2018-09-15 15:13 | P.OP ---
Date of Procedure: 09/15/18 Procedure(s) Performed: PREOPERATIVE DIAGNOSIS: Acute calculus cholecystitis POSTOPERATIVE DIAGNOSIS: Same PROCEDURE: Laparoscopic cholecystectomy SURGEON: Deepthi EBL: Minimal see anesthesia record ANESTHESIA: Gen. COMPLICATIONS: None OPERATIVE PROCEDURE: The patient was brought and placed on the operating room table in the supine position. The patient was placed under general anesthesia at that time. The abdomen was prepped and draped in the usual sterile fashion. A small vertical infraumbilical incision was made. The fascia was grasped with the Zhane forceps. The fascia was retracted anteriorly. The Veress needle was advanced into the peritoneal cavity. The saline drop test was normal. Ins ufflation took place up to 15 mmHg. A 5 mm optical trocar was advanced and the peritoneal cavity. 2 additional 5 mm trochars were placed in the right upper quadrant under direct visualization. A 12 mm trocar was advanced into the epigastric incision site. The gallbladder was inspected and was noted to be inflamed with gallbladder wall edema present. The gallbladder was retracted superiorly and laterally. The peritoneum overlying the infundibulum was bluntly dissected. The patient's cystic duct was visualized. The junction between the cystic duct common and hepatic duct was identified. The cystic duct was then divided after placement of 3 12 mm clips on the patient's side and one on the specimen side. The cystic artery was identified and clipped as well. A small vessel was seen along the gallbladder fossa and clipped as well. The gallbladder was then removed from the liver bed using electrocautery. The gallbladder was then removed from the epigastric trocar site with an Endo Catch bag. The gallbladder fossa was irrigated with saline. There was no evidence of any bleeding or biliary drainage seen. The fascia at the 12 millimeter site was closed using a Pedro-Karen 0 Vicryl stitch. The trochars were then removed. The skin at all 4 sites was closed using a 4-0 Monocryl stitch. Skin glue was utilized on the incision sites. At the end of this procedure the sponge and needle counts were correct. DISPOSITION: Stable to the recovery room
[2018-09-15] MEDS ORDERED: HYDROmorphone 0.5 MG/0.5 ML SYRINGE IVP ONE (15:52)
[2018-09-15] MEDS: KETOROLAC 30 MG/ML 1 ML VIAL IVP SCH (20:48)
[2018-09-15] MEDS: PIPERACILLIN-TAZOBACTAM 3.375 GM in SODIUM CHLORIDE 0.9% 100 ML IVPB SCH (22:26)
[2018-09-16] MEDS: KETOROLAC 30 MG/ML 1 ML VIAL IVP SCH ×3 (02:13→12:00)
[2018-09-16] MEDS: SODIUM CHLORIDE 0.9% 1,000 ML IV SCH (05:08)
[2018-09-16] MEDS: PIPERACILLIN-TAZOBACTAM 3.375 GM in SODIUM CHLORIDE 0.9% 100 ML IVPB SCH ×2 (06:15→15:23)
[2018-09-16 06:28] VITALS: RESP 16
[2018-09-16 06:56] LABS: Basophils % (A) 0 %; Eosinophils % (A) 0 %; HCT 35.6 % (34.0-46.0); HGB 11.3 gm/dL (11.4-16.0); Lymphocytes % (A) 21 %; MCH 28.3 pg (25.0-35.0); MCHC 31.9 g/dL (31.0-37.0); MCV 88.7 fL (80.0-100.0); Mean Platelet Volume 7.3; Monocytes # (A) 0.5 k/uL (0-1.0); Monocytes % (A) 6 %; Neutrophils # (A) 6.7 k/uL (1.3-7.7); Neutrophils % (A) 71 %; Platelet Count 267 k/uL (150-450); RBC 4.01 m/uL (3.80-5.40); RDW 13.4 % (11.5-15.5); WBC 9.5 k/uL (3.8-10.6)
[2018-09-16 07:09] LABS: ALT 32 U/L (9-52); AST 40 U/L (14-36); African American GFR (CKD) >90 (>60 ml/min/1.73 sqM); Albumin 3.5 g/dL (3.5-5.0); Alkaline Phosphatase 84 U/L (38-126); Anion Gap 7 mmol/L; Blood Urea Nitrogen 9 mg/dL (7-17); Calcium 8.5 mg/dL (8.4-10.2); Carbon Dioxide 20 mmol/L (22-30); Chloride 110 mmol/L (98-107); Glucose 88 mg/dL (74-99); Potassium 4.1 mmol/L (3.5-5.1); Sodium 137 mmol/L (137-145); Total Bilirubin 1.4 mg/dL (0.2-1.3); Total Protein 6.4 g/dL (6.3-8.2)
[2018-09-16] MEDS ORDERED: ONDANSETRON 4 MG/2 ML VIAL IVP PRN (07:23)
[2018-09-16] MEDS ORDERED: PANTOPRAZOLE 40 MG TABLET PO SCH (07:30)
[2018-09-16 10:19] VITALS: BP 100/61; PULSE 60; TEMP 97.8
--- NOTE | 2018-09-16 16:19 | P.DS ---
Providers Date of admission: 09/16/18 15:35 Expected date of discharge: 09/16/18 Attending physician: Destin Lacey Primary care physician: Makenna Alvaradoo - Discharge Diagnosis(es) (1) Acute cholecystitis due to biliary calculus Patient was admitted through the emergency department with acute cholecystitis. Yesterday went for laparoscopic cholecystectomy. She has done well postoperative. Her pain is improved. She is tolerating diet. Labs show slight increase in bilirubin from 1.0-1.4. Abdomen soft nondistended mild incisional tenderness, incisions clean and dry. Patient is anxious to go home. We'll discharge today with outpatient follow-up in 1 week. Current Visit: Yes Status: Acute Patient Condition at Discharge: Fair Plan - Discharge Summary Discharge Rx Participant: Yes New Discharge Prescriptions: New Hydrocodone/Acetaminophen [[place] 5-325] 1 tab PO Q6HR PRN 3 Days #10 tab PRN Reason: Pain No Action Ibuprofen [Motrin] 200 - 400 mg PO Q6HR PRN PRN Reason: Pain Fluticasone Nasal [place] [Flonase Nasal [place]] 2 spray NASAL DAILY Pantoprazole [Protonix] 40 mg PO DAILY #90 tablet.dr Mcgarry 1 tab PO HS Fexofenadine/Pseudoephedrine [Paula-D 24 Hour Tablet] 1 tab PO DAILY PRN PRN Reason: Allergy Symptoms Discharge Medication List Ibuprofen [Motrin] 200 - 400 mg PO Q6HR PRN 04/17/15 [History] Fluticasone Nasal [place] [Flonase Nasal [place]] 2 spray NASAL DAILY 04/19/15 [Hist ory] Pantoprazole [Protonix] 40 mg PO DAILY #90 tablet. 04/19/15 [Rx] Fexofenadine/Pseudoephedrine [Paula-D 24 Hour Tablet] 1 tab PO DAILY PRN 09/15/18 [History] Hydrocodone/Acetaminophen [[place] 5-325] 1 tab PO Q6HR PRN 3 Days #10 tab 09/15/18 [Rx] Malgorz[place] 1 tab PO HS 09/15/18 [History] Follow up Appointment(s)/Referral(s): Destin Lacey MD [Medical Doctor] - 1 Week (september 21 at 2:30pm will need drivers license, medication list, insurance card, and there is paperwork to be filled out. You may swing by office and pickling grader paperwork if you choose to do so. ) Makenna Colin MD [Primary Care Provider] - 1-2 days Activity/Diet/Wound Care/Special Instructions: No lifting, pushing pulling, call for fever, pain not controlled by meds, redne ss or foul drainage from incisional sites, vomiting, any other problems or concerns.
== END 2018-09-16 16:43 | disposition home or self-care (01) | DRG 419 ==
LOC: EC 05:41 → 6PED 08:40 → OBSVTOIN 09-16 15:35
PROVIDERS: ADMIT Surgery; ATTEND Surgery
PROC: 0FT44ZZ Resection of Gallbladder, Percutaneous Endoscopic Approach (ICD-10-PCS; principal; 2018-09-15 15:20)
DX: K80.00 Calculus of gallbladder with acute cholecystitis without obstruction (principal); K21.9 Gastro-esophageal reflux disease without esophagitis; Z79.899 Other long term (current) drug therapy; Z87.19 Personal history of other diseases of the digestive system; Z87.891 Personal history of nicotine dependence; Z80.0 Family history of malignant neoplasm of digestive organs; Z80.1 Family history of malignant neoplasm of trachea, bronchus and lung
CPT/HCPCS: 36415; 76705; 80053; 81001; 81025; 82150; 83690; 85025; 88304; 96374; 96375; 99285

== ENCOUNTER → 2019-10-27 | Outpatient (CLI) | payer MEDICAID ==
--- NOTE | 2019-11-02 10:15 | MM ---
Reason for exam: screening (asymptomatic). Last mammogram was performed 1 year and 3 months ago. History: Benign US breast aspiration single RT of the right breast, June 23, 2017. Benign US biopsy breast VAD RT of the right breast, June 23, 2017. Taking hormonal contraceptives for 15 years. Physical Findings: A clinical breast exam by your physician is recommended on an annual basis and results should be correlated with mammographic findings. MG 3D Screening Mammo W/Cad Bilateral CC and MLO view(s) were taken. Prior study comparison: July 29, 2018, bilateral MG 3d diag mammo w/cad ASHLEY. June 23, 2017, right breast MG diagnostic mammo RT wo CAD. The breast tissue is heterogeneously dense. This may lower the sensitivity of mammography. Cyst left breast. No significant changes when compared with prior studies. ASSESSMENT: Benign, BI-RAD 2 RECOMMENDATION: Routine screening mammogram of both breasts in 1 year.
== END | disposition home or self-care (01) ==
LOC: RADMAMWWP 14:35
PROVIDERS: ATTEND Surgery
DX: Z12.31 Encounter for screening mammogram for malignant neoplasm of breast (principal)
CPT/HCPCS: 77063; 77067

== ENCOUNTER → 2019-11-06 | Outpatient (CLI) | payer MEDICAID ==
--- NOTE | 2019-11-06 10:30 | CT ---
EXAMINATION TYPE: CT chest w con DATE OF EXAM: 11/06/2019 COMPARISON: 05/31/2019 HISTORY: follow up solitary pulmonary nodule CT DLP: 352.2 mGycm Automated exposure control for dose reduction was used. CONTRAST: CT scan of the chest is performed with IV Contrast, patient injected with 100 mL of Isovue 300. FINDINGS: LUNGS: Stable 5 mm pulmonary nodule right upper lobe. Stable pleural-based 5 mm pulmonary nodule righ t middle lobe. Stable pleural-based lingular nodule also measuring 5 mm. No new nodules identified. N o evidence of pulmonary mass. No infiltrate or volume loss. MEDIASTINUM: There are no greater than 1 cm hilar or mediastinal lymph nodes. No pericardial effusi on is seen. Thoracic aorta is of normal caliber. The heart is not enlarged. UPPER ABDOMEN: No significant abnormality appreciated. OTHER: No additional significant abnormality is seen. IMPRESSION: Stable pulmonary nodularity. Stability over a two-year timeframe should be documented radiographicall yLorena
== END ==
LOC: RADCTMAIN 09:25
PROVIDERS: ATTEND Family Medicine
DX: R91.8 Other nonspecific abnormal finding of lung field (principal)
CPT/HCPCS: 71260; Q9967

== ENCOUNTER → 2020-04-11 | Outpatient (CLI) | payer MEDICAID ==
[2020-04-11 08:38] LABS: Basophils # (A) 0.1 k/uL (0-0.2); Basophils % (A) 1 %; Eosinophils # (A) 0.3 k/uL (0-0.7); Eosinophils % (A) 4 %; HCT 39.2 % (34.0-46.0); HGB 13.1 gm/dL (11.4-16.0); Lymphocytes # (A) 1.4 k/uL (1.0-4.8); Lymphocytes % (A) 21 %; MCH 29.6 pg (25.0-35.0); MCHC 33.5 g/dL (31.0-37.0); MCV 88.4 fL (80.0-100.0); Mean Platelet Volume 7.6; Monocytes # (A) 0.4 k/uL (0-1.0); Monocytes % (A) 6 %; Neutrophils # (A) 4.3 k/uL (1.3-7.7); Neutrophils % (A) 65 %; Platelet Count 309 k/uL (150-450); RBC 4.44 m/uL (3.80-5.40); WBC 6.7 k/uL (3.8-10.6)
[2020-04-11 18:14] LABS: African American GFR (CKD) 101.8 (60.0-200.0); Albumin 4.2 g/dL (3.80-4.90); Albumin/Globulin Ratio 1.68 (1.60-3.17); Anion Gap 9.2 mmol/L (4.00-12.00); Calcium 8.9 mg/dL (8.7-10.3); Carbon Dioxide 23.8 mmol/L (21.6-31.8); Chol/HDL Ratio 2.34; Globulin 2.5 g/dL (1.6-3.3); LDL Cholesterol,Calculated 78.2 mg/dL (0.0-131.0); Non-African American GFR(CKD) 87.8 (60.0-200.0); Potassium 4.3 mmol/L (3.5-5.5); Total Bilirubin 1.1 mg/dL (0.3-1.2); Total Protein 6.7 g/dL (6.2-8.2); VLDL Calculation 24.8 mg/dL (5.00-40.00)
[2020-04-11 18:22] LABS: T4, Free (Free Thyroxine) 1.1 ng/dL (0.80-1.80)
== END | disposition home or self-care (01) ==
LOC: LABWHC1 07:57
PROVIDERS: ATTEND Family Medicine
DX: M54.9 Dorsalgia, unspecified (principal); R09.1 Pleurisy; Z68.32 Body mass index [BMI] 32.0-32.9, adult
CPT/HCPCS: 36415; 80053; 80061; 84439; 84443; 85025; 86769

== ENCOUNTER → 2020-05-02 | Outpatient (CLI) | payer MEDICAID ==
--- NOTE | 2020-05-02 18:45 | XR ---
EXAMINATION TYPE: XR thoracic spine complete, 3 views DATE OF EXAM: 05/02/2020 Comparison: None Clinical History: 49-year-old female THORACIC PAIN Findings: 12 rib bearing thoracic vertebral bodies. All pedicles are visualized. Mild multilevel degenerative d isc disease. Slightly accentuated midthoracic kyphosis. Vertebral body heights are preserved and alig nment is maintained. Impression: Mild multilevel degenerative disc disease. Slightly accentuated midthoracic kyphosis. No vertebral co mpression collapse or malalignment.
--- NOTE | 2020-05-02 18:54 | US ---
EXAMINATION TYPE: US thyroid st tissue head/neck DATE OF EXAM: 05/02/2020 COMPARISON: NONE CLINICAL HISTORY: 49-year-old female E04.9 Goiter. Trouble swallowing. TECHNIQUE: Multiple sonographic images of the thyroid gland are obtained. FINDINGS: GLAND SIZE: Right Lobe: 4.2 x 1.6 x 1.4 cm Overall Parenchyma: homogenous Left Lobe: 5.2 x 1.3 x 1.4 cm Overall Parenchyma: homogeneous Isthmus Thickness: .2 cm NODULES RIGHT: # of nodules measured on right: 0 LEFT: # of nodules measured on left: 0 ISTHMUS: # of nodules measured in the isthmus: 0 Bilateral neck scanned, no evidence of lymphadenopathy. IMPRESSION: Borderline to mild thyromegaly. No discrete nodules.
== END | disposition home or self-care (01) ==
LOC: RADUSWWP 12:55
PROVIDERS: ATTEND Family Medicine
DX: M51.34 Other intervertebral disc degeneration, thoracic region (principal); M40.204 Unspecified kyphosis, thoracic region; E01.0 Iodine-deficiency related diffuse (endemic) goiter
CPT/HCPCS: 72072; 76536

== ENCOUNTER → 2020-05-09 | Outpatient (CLI) | payer MEDICAID ==
--- NOTE | 2020-05-09 11:41 | CT ---
EXAMINATION TYPE: CT chest w con DATE OF EXAM: 05/09/2020 COMPARISON: Chest CT November 06, [address] May 31, 2019 HISTORY: Lung nodule CT DLP: 566 mGycm. Automated Exposure Control for Dose Reduction was Utilized. TECHNIQUE: CT scan of the thorax is performed following with IV Contrast, patient injected with 100 mL of Isovue 300. FINDINGS: LUNGS: There is stable 4 to 5 mm right midlung nodule along fissure axial image 26 presumed benign. Inferior to this there is stable 4 to 5 mm subpleural nodule axial image 29. No new nodules or masses . There is no pleural effusion or pneumothorax seen bilaterally. The tracheobronchial tree is patent . MEDIASTINUM: There are no greater than 1 cm hilar or mediastinal lymph nodes. No cardiomegaly or pe ricardial effusion is seen. OTHER: Cholecystectomy clips are redemonstrated. IMPRESSION: Stable right-sided nodules. No new or enlarging nodules.
== END | disposition home or self-care (01) ==
LOC: RADCTMAIN 11:02
PROVIDERS: ATTEND Family Medicine
DX: R91.8 Other nonspecific abnormal finding of lung field (principal)
CPT/HCPCS: 71260; Q9967

== ENCOUNTER → 2021-02-07 | Outpatient (CLI) | payer MEDICAID ==
--- NOTE | 2021-02-10 10:34 | MM ---
Reason for exam: screening (asymptomatic). Last mammogram was performed 1 year and 3 months ago. History: Benign US breast aspiration single RT of the right breast, June 23, 2017. Benign US biopsy breast VAD RT of the right breast, June 23, 2017. Taking hormonal contraceptives for 15 years. Physical Findings: A clinical breast exam by your physician is recommended on an annual basis and results should be correlated with mammographic findings. MG 3D Screening Mammo W/Cad Bilateral CC and MLO view(s) were taken. Prior study comparison: October 27, 2019, bilateral MG 3d screening mammo w/cad. July 29, 2018, bilateral MG 3d diag mammo w/cad ASHLEY. The breast tissue is extremely dense which could obscure a lesion on mammography. Finding: There are less than 1cm obscured oval masses in both breasts. Previous mammotome biopsy in the right breast. ASSESSMENT: Incomplete: need additional imaging evaluation, BI-RAD 0 RECOMMENDATION: Ultrasound of both breasts. [facility] will attempt to contact patient to return for ultrasound.
== END | disposition home or self-care (01) ==
LOC: RADMAMWWP 14:39
PROVIDERS: ATTEND Obstetrics & Gynecology
DX: Z12.31 Encounter for screening mammogram for malignant neoplasm of breast (principal)
CPT/HCPCS: 77063; 77067

== ENCOUNTER → 2021-02-24 | Outpatient (CLI) | payer MEDICAID ==
--- NOTE | 2021-02-25 11:53 | USB ---
Reason for exam: additional evaluation requested from abnormal screening. History: Benign US breast aspiration single RT of the right breast, June 23, 2017. Benign US biopsy breast VAD RT of the right breast, June 23, 2017. Taking hormonal contraceptives for 15 years. Physical Findings: Nurse Summary: thickening on left 1-2 o'clock generalized lumpiness on right (nurse rolando). US Breast Workup Limited ASHLEY Right limited breast ultrasound including focal area of concern, retroareolar and axilla demonstrates a 2.1 x 1.4 x 2.2cm oval, cystic lesion at 10 o'clock, mammographic correlate. Left limited breast ultrasound including focal area of concern, retroareolar and axilla demonstrates a 2.8 x 1.5 x 3.9cm oval, cystic lesion at 1 o'clock, mammographic correlate. Multiple bilateral cysts. Scanned right 9-12 o'clock, scanned left 12-3 o'clock. 1 year follow up diagnostic mammogram. These results were verbally communicated with the patient and result sheet given to the patient on 02/24/21. ASSESSMENT: Probably benign, BI-RAD 3 RECOMMENDATION: Follow-up diagnostic mammogram of both breasts in 1 year.
== END | disposition home or self-care (01) ==
LOC: RADUSWWP 08:26
PROVIDERS: ATTEND Obstetrics & Gynecology
DX: N60.11 Diffuse cystic mastopathy of right breast (principal); N60.12 Diffuse cystic mastopathy of left breast

== ENCOUNTER → 2021-02-24 | Outpatient (CLI) | payer MEDICAID ==
[2021-02-24 11:10] LABS: Appearance,Urine Clear (Clear); Bilirubin,Urine Negative (Negative); Blood,Urine Small (Negative); Color,Urine Yellow; Glucose,Urine (UA) Negative (Negative); Ketones,Urine Negative (Negative); Leukocyte Esterase,Urine Negative (Negative); Mucus,Urine Rare /hpf; Nitrite,Urine Negative (Negative); Protein,Urine Negative (Negative); RBC,Urine 1 /hpf (0-5); Squamous Epithelial Cell,Urine <1 /hpf (0-4); Urobilinogen,Urine <2.0 mg/dL (<2.0); WBC,Urine 1 /hpf (0-5)
--- NOTE | 2021-02-24 14:16 | XR ---
EXAMINATION TYPE: XR foot complete RT DATE OF EXAM: 02/24/2021 COMPARISON: NONE HISTORY: 50-year-old female M79.671, right foot pain TECHNIQUE: 3 views FINDINGS: Type I versus type II accessory navicular. Os peroneum noted. Benign bone island posterior calcaneus. Moderate size plantar heel spur. No acute fracture, subluxation, or dislocation. IMPRESSION: Moderate-sized plantar heel spur. Correlate to exclude plantar fasciitis. No acute osseous abnormalit y seen.
[2021-02-24 16:15] LABS: Basophils # (A) 0.07 X 10*3/uL (0.00-0.10); Eosinophils # (A) 0.31 X 10*3/uL (0.04-0.35); Eosinophils % (A) 4.4 %; HGB 11.8 g/dL (12.0-15.0); Lymphocytes # (A) 1.69 X 10*3/uL (0.90-5.00); Lymphocytes % (A) 24.1 %; MCH 28.2 pg (27.0-32.0); MCHC 31.1 g/dL (32.0-37.0); MCV 90.7 fL (80.0-97.0); Mean Platelet Volume 11.6 fL (9.5-12.2); Monocytes # (A) 0.61 X 10*3/uL (0.20-1.00); Monocytes % (A) 8.7 %; Neutrophils # (A) 4.31 X 10*3/uL (1.80-7.70); Neutrophils % (A) 61.7 %; Platelet Count 341 X 10*3/uL (140-440); RBC 4.19 X 10*6/uL (4.10-5.20); RDW 13.6 % (11.5-14.5)
[2021-02-24 16:47] LABS: Chol/HDL Ratio 2.41 Ratio; LDL Cholesterol,Calculated 73.2 mg/dL (0.0-131.0)
[2021-02-24 16:48] LABS: ALT 14 U/L (8-44); AST 21 U/L (13-35); Albumin 3.9 g/dL (3.8-4.9); Albumin/Globulin Ratio 1.34 (1.60-3.17); Alkaline Phosphatase 81 U/L (41-126); BUN/Creat Ratio 12.63 Ratio (12.00-20.00); Blood Urea Nitrogen 10.1 mg/dL (9.0-27.0); Calcium 8.7 mg/dL (8.7-10.3); Carbon Dioxide 20.8 mmol/L (21.6-31.8); Chloride 105 mmol/L (96-109); Creatine Kinase 131 U/L (26-186); Globulin 2.9 g/dL (1.6-3.3); Glucose 90 mg/dL (70-110); Non-African American GFR(CKD) 87.2 (60.0-200.0); Potassium 4.4 mmol/L (3.5-5.5); Sodium 138 mmol/L (135-145); Total Protein 6.8 g/dL (6.2-8.2)
== END | disposition home or self-care (01) ==
LOC: LABWHC1 09:19
PROVIDERS: ATTEND Family Medicine
DX: Z00.00 Encounter for general adult medical examination without abnormal findings (principal); E53.8 Deficiency of other specified B group vitamins; H81.20 Vestibular neuronitis, unspecified ear; R91.1 Solitary pulmonary nodule; M77.8 Other enthesopathies, not elsewhere classified
CPT/HCPCS: 36415; 80053; 80061; 81001; 82306; 82550; 82607; 83036; 84439; 84443; 85025

== ENCOUNTER → 2021-05-09 | Outpatient (CLI) | payer MEDICAID ==
[2021-05-09 15:17] LABS: Basophils % (A) 1.4 %; Eosinophils # (A) 0.36 X 10*3/uL (0.04-0.35); Eosinophils % (A) 4.9 %; HCT 38.7 % (37.2-46.3); HGB 12.2 g/dL (12.0-15.0); Lymphocytes # (A) 2.34 X 10*3/uL (0.90-5.00); Lymphocytes % (A) 31.7 %; MCHC 31.5 g/dL (32.0-37.0); Mean Platelet Volume 11.1 fL (9.5-12.2); Monocytes # (A) 0.64 X 10*3/uL (0.20-1.00); Monocytes % (A) 8.7 %; Neutrophils # (A) 3.93 X 10*3/uL (1.80-7.70); Neutrophils % (A) 53.2 %; Platelet Count 346 X 10*3/uL (140-440); RBC 4.35 X 10*6/uL (4.10-5.20); RDW 13.8 % (11.5-14.5); WBC 7.38 X 10*3/uL (4.50-10.00)
[2021-05-09 15:29] LABS: % Iron Saturation 8.32 (12.00-45.00); Non-African American GFR(CKD) 87.2 (60.0-200.0)
== END | disposition home or self-care (01) ==
LOC: LABWHC1 11:09
PROVIDERS: ATTEND Family Medicine
DX: R91.1 Solitary pulmonary nodule (principal)
CPT/HCPCS: 36415; 82565; 83540; 83550; 84520; 85025

== ENCOUNTER → 2021-05-13 | Outpatient (CLI) | payer MEDICAID ==
--- NOTE | 2021-05-13 12:51 | CT ---
EXAMINATION TYPE: CT chest w con DATE OF EXAM: 05/13/2021 COMPARISON: 05/09/2020 HISTORY: Solitary Pulmonary Nodule CT DLP: 309.10 mGycm Automated exposure control for dose reduction was used. TECHNIQUE: CT scan of the chest is performed with IV Contrast, patient injected with 100 ml mL of Isovue 300. M IP Images are created on CT scanner and reviewed. 3D reconstructed images are created on an [employer] workstation and reviewed. FINDINGS: LUNGS: The lungs are grossly clear, there is no focal pneumonia. There is no pleural effusion or pn eumothorax seen. The tracheobronchial tree is patent. Stable 4 mm nodule right upper lobe. Stable moody bpleural 5 mm nodule right upper lobe. Stable subpleural nodule left lower measuring 5 mm. MEDIASTINUM: There are no greater than 1 cm hilar or mediastinal lymph nodes. No pericardial effusi on is seen. OTHER: Surgical clips in the gallbladder fossa. Somewhat nodular appearing density or tissue in the lateral posterior margin of the right breast measuring 2.2 cm. IMPRESSION: 1. There are stable bilateral 5 mm or less pulmonary nodules. Recommend continued annual follow-up. 2. Nodular density of breast tissue lateral posterior right breast likely corresponds to recent ultra sound of the right breast abnormality noted suggestive of cyst.
--- NOTE | 2021-05-22 09:26 | EM ---
EVENT MONITOR Patient was monitored between May 13 and May 20, 2021. The rhythm strip revealed sinus mechanism with normal conduction. Rare PVCs were noted. There was one 11-complex supraventricular arrhythmia on May 20 at 1:25 a.m. that could represent a short burst of paroxysmal atrial fibrillation. No symptoms were reported during that time. Symptoms of dizziness did not correlate with any arrhythmia. MMAJIT / CARLYN: [id number] /
== END | disposition home or self-care (01) ==
LOC: RADCTMAIN 11:19
PROVIDERS: ATTEND Family Medicine
DX: R91.8 Other nonspecific abnormal finding of lung field (principal); N64.89 Other specified disorders of breast; I49.3 Ventricular premature depolarization
CPT/HCPCS: 93270; 71260; Q9967

== ENCOUNTER → 2021-07-28 | Outpatient (CLI) | payer MEDICAID ==
--- NOTE | 2021-07-29 07:03 | CA ---
Transthoracic Echo Report Name: Elise Ross Age: 51 Gender: F : 1970 Exam Date: 07/28/2021 10:04 Exam Location: [place] [facility] Ht (in): 68 Wt (lb): 208 Ordering Physician: Aguila Post MD Attending/Referring Phys: Aguila Post MD Costume Specialist Rosy Ward RDCS Procedure CPT: Indications: R07.9 Chest pain R06.02 Shortness of breath Cardiac Hx: Technical Quality: Good Contrast 1: Total Dose (mL): Contrast 2: Total Dose (mL): MEASUREMENTS (Male / Female) Normal Values 2D ECHO LV Diastolic Diameter PLAX 3.9 cm 4.2 - 5.9 / 3.9 - 5.3 cm LV Systolic Diameter PLAX 1.6 cm IVS Diastolic Thickness 0.9 cm 0.6 - 1.0 / 0.6 - 0.9 cm LVPW Diastolic Thickness 1.1 cm 0.6 - 1.0 / 0.6 - 0.9 cm LV Relative Wall Thickness 0.5 RV Internal Dim ED PLAX 3.1 cm LA Volume 55.9 cm 18 - 58 / 22 - 52 cm M-MODE Aortic Root Diameter MM 2.7 cm LA Systolic Diameter MM 3.3 cm LA Ao Ratio MM 1.2 MV E Point Septal Separation 0.7 cm AV Cusp Separation MM 2.0 cm DOPPLER AV Peak Velocity 166.7 cm/s AV Peak Gradient 11.1 mmHg AI Peak Velocity 365.3 cm/s AI Peak Gradient 53.4 mmHg AI Pressure Half Time 564.4 ms MV Area PHT 3.9 cm Mitral E Point Velocity 110.6 cm/s Mitral A Point Velocity 81.9 cm/s Mitral E to A Ratio 1.4 MV Deceleration Time 195.4 ms MV E' Velocity 14.5 cm/s Mitral E to MV E' Ratio 7.7 TR Peak Velocity 282.4 cm/s TR Peak Gradient 31.9 mmHg Right Ventricular Systolic Press 36.9 mmHg FINDINGS Left Ventricle Mildly increased posterior wall thickness. Left ventricular ejection fraction is estimated at 55-60 %. Right Ventricle The right ventricle is normal in size and function. Right Atrium The right atrium is normal in size. Left Atrium Mildly increased left atrial volume. Mildly increased left atrial area. Mitral Valve Structurally normal mitral valve without significant stenosis or prolapse. There is mild mitral regurgitation. Aortic Valve Structurally normal aortic valve without significant sclerosis or stenosis. There is a trace of aortic regurgitation. Tricuspid Valve Structurally normal tricuspid valve without significant stenosis. Pulmonary artery systolic pressure is normal. Trace tricuspid regurgitation. Pulmonic Valve Structurally normal pulmonic valve without significant stenosis. There is no pulmonic regurgitation. Pericardium Normal pericardium without effusion. Aorta Normal aortic root dimension. CONCLUSIONS Normal size and systolic function with mild concentric. Mild mitral and tricuspid insufficiency. No pericardial effusion. Previewed by: Dr. Jim Peguero MD (Electronically Signed) Final Date: 29 July 2021 07:02
--- NOTE | 2021-07-29 07:44 | CA ---
Stress Echo Report Elise Ross Age: 51 Gender: F : 1970 Exam Date: 07/28/2021 09:50 Exam Location: [place] [facility] Ht (in): 66 Wt (lb): 208 Ordering Physician: Aguila Post MD Referring Physician: Aguila Post MD It Service Delivery Manager: Clarissa Haney RDCS Technologist Procedure CPT: Indication: R07.9 Chest pain R06.02 Shortness of breath ICD-9 Codes: Rhythm: Patient History: Cardiac Medications: Medications in past 24 hours: Contrast: Stress Results Protocol: Jimmy Total dose(mL): Exercise Duration (min:sec): Max ST Depression (mm): Angina Score: Velasco Score: METS: Resting HR: Resting BP: / Peak HR: Peak BP: / Max Predicted HR: 171 % Max Predicted HR Target HR: 145 Double Product: Stress Summary: BP Response: Reason for Termination: Cardiac Symptoms: ECG Analysis Resting ECG: Stress ECG: Arrhythmia: Echo Analysis Resting Echo: Peak Echo Analysis: MEASUREMENTS (Male/Female) Normal Values CONCLUSIONS Patient walked on a standard Jimmy protocol for a total duration of 8 minutes and achieved a maximum heart rate of 163 bpm which is more than 85% of predicted maximal. isolated PVCs were noted. There was a hypertensive response to exercise with a peak pressure of 210/87. No anginal symptoms were reported. There was no ST segment change to indicate ischemia. By EKG criteria this is a negative stress test with no evidence of ischemia Baseline echo images revealed normal wall motion and wall thickening of all segments. At peak exercise there was good augmentation of wall motion wall thickening of all segments suggesting that there is no evidence of stress-induced ischemia on this study Dr. Jim Peguero MD (Electronically Signed) Final Date: 29 July 2021 07:43
== END | disposition home or self-care (01) ==
LOC: RADNMMAIN 09:15
PROVIDERS: ATTEND Internal Medicine Clinical Cardiac Electrophysiology
DX: I08.1 Rheumatic disorders of both mitral and tricuspid valves (principal); I49.3 Ventricular premature depolarization; I10 Essential (primary) hypertension
CPT/HCPCS: 93306; 93351

== ENCOUNTER → 2021-11-04 | Outpatient (CLI) | payer MEDICAID ==
--- NOTE | 2021-11-04 12:25 | US ---
EXAMINATION TYPE: US venous doppler duplex LE LT DATE OF EXAM: 11/04/2021 12:13 PM COMPARISON: NONE CLINICAL HISTORY: R22.42 SWELLING, MASS AND LUMP LT LE. Left leg swelling SIDE PERFORMED: Left TECHNIQUE: The lower extremity deep venous system is examined utilizing real time linear array sonog binh with graded compression, doppler sonography and color-flow sonography. VESSELS IMAGED: Common Femoral Vein Deep Femoral Vein Greater Saphenous Vein * Femoral Vein Popliteal Vein Small Saphenous Vein * Proximal Calf Veins (* superficial vessels) Left Leg: Appears negative for DVT Grayscale, color doppler, spectral doppler imaging performed of the deep veins of the lower extremiti es. There is normal flow, compressibility, vascular waveforms. IMPRESSION: No evidence of deep vein thrombosis of the left lower extremity.
[2021-11-04 18:09] LABS: Basophils # (A) 0.09 X 10*3/uL (0.00-0.10); Basophils % (A) 1.2 %; Eosinophils # (A) 0.36 X 10*3/uL (0.04-0.35); Eosinophils % (A) 4.9 %; HCT 40.7 % (37.2-46.3); HGB 12.5 g/dL (12.0-15.0); Immature Grans, Automated 0.3 %; Lymphocytes # (A) 2.25 X 10*3/uL (0.90-5.00); Lymphocytes % (A) 30.7 %; MCHC 30.7 g/dL (32.0-37.0); MCV 91.1 fL (80.0-97.0); Mean Platelet Volume 11.9 fL (9.5-12.2); Monocytes # (A) 0.72 X 10*3/uL (0.20-1.00); Monocytes % (A) 9.8 %; NRBC Per 100 WBC 0 /100 WBCS (0.0-0.0); Neutrophils # (A) 3.88 X 10*3/uL (1.80-7.70); Neutrophils % (A) 53.1 %; Platelet Count 321 X 10*3/uL (140-440); RBC 4.47 X 10*6/uL (4.10-5.20); RDW 13.5 % (11.5-14.5); WBC 7.32 X 10*3/uL (4.50-10.00)
[2021-11-04 18:36] LABS: African American GFR (CKD) 100.3 (60.0-200.0); Albumin 4.3 g/dL (3.8-4.9); Albumin/Globulin Ratio 1.3 (1.60-3.17); Anion Gap 12.8 mmol/L (10.00-18.00); Blood Urea Nitrogen 13.6 mg/dL (9.0-27.0); Calcium 9.5 mg/dL (8.7-10.3); Carbon Dioxide 24.2 mmol/L (20.0-27.5); Follicle Stimulating Hormone 45.3 mIU/mL; Globulin 3.3 g/dL (1.6-3.3); Luteinizing Hormone 36.6 mIU/mL; Non-African American GFR(CKD) 86.6 (60.0-200.0); Potassium 4.3 mmol/L (3.5-5.5); T4, Free (Free Thyroxine) 1.07 ng/dL (0.800-1.800); Total Protein 7.6 g/dL (6.2-8.2)
== END | disposition home or self-care (01) ==
LOC: RADUSWWP 11:49
PROVIDERS: ATTEND Internal Medicine Geriatric Medicine
DX: N95.1 Menopausal and female climacteric states (principal); R22.42 Localized swelling, mass and lump, left lower limb
CPT/HCPCS: 80053; 83001; 83002; 84439; 84443; 85025

== ENCOUNTER → 2021-12-23 | Outpatient (CLI) | payer MEDICAID ==
--- NOTE | 2021-12-23 16:34 | US ---
EXAMINATION TYPE: US extremity nonvasculr ltd LT DATE OF EXAM: 12/23/2021 COMPARISON: NONE CLINICAL HISTORY: R2242 MASS/LUMP LEFT LOWER LIMB. Edema behind the left knee. Patient states her doc tor wants to evaluate for Mack's cyst. Scanned left posterior, medial, and lateral knee. No abnormalities seen by ultrasound at patient's area of concern. IMPRESSION: No evidence of mass and lump in the patient's area of palpable abnormality. No evidence o f Mack's cyst.
--- NOTE | 2021-12-23 16:40 | US ---
EXAMINATION TYPE: US transvaginal DATE OF EXAM: 12/23/2021 COMPARISON: NONE CLINICAL INDICATION:Female, 51 years old with history of R1907 DIFFUSE OR GENERALIZED PELVIC SWELLING OR MASS; Discomfort intermittently on the left side. . Hx ectopic tubal treated throu gh medication. No hx of pelvic surgeries. TECHNIQUE: Transvaginal (TV). Date of LMP: In July 2021 EXAM MEASUREMENTS: Uterus: 7.5 x 3.3 x 4.9 cm Endometrial Stripe: 0.21 cm Right Ovary: Not visualized. Left Ovary: Not visualized. 1. Uterus: Anteverted Appears heterogeneous. Subcentimeter hypoechoic areas seen in cervix consist ent with nabothian cysts. 2. Endometrium: Measures 0.21 cm 3. Right Ovary: Not visualized. 4. Left Ovary: Not visualized. 5. Bilateral Adnexa: Appear wnl 6. Posterior cul-de-sac: Appears wnl IMPRESSION: 1. No evidence for acute process. 2. Endometrium within normal limits for size.
== END | disposition home or self-care (01) ==
LOC: RADUSWWP 14:16
PROVIDERS: ATTEND Family Medicine
DX: R22.42 Localized swelling, mass and lump, left lower limb (principal)
CPT/HCPCS: 76830

== ENCOUNTER → 2022-03-24 | Outpatient (CLI) | payer MEDICAID ==
--- NOTE | 2022-04-06 15:00 | MM ---
Reason for Exam: Clinical finding. Last mammogram was performed 1 year(s) and 1 month(s) ago. Patient History: Menarche at age 16. First Full-Term at age 22. Patient has history of breast feeding. Patient used Hormonal Contraceptives for 15 years. Currently using Unspecified Hormone, for 3 months. 06/23/2017, Benign Cyst Aspiration on the right side. 06/23/2017, Benign Core Biopsy on the right side. Risk Values: Ellen 5 year model risk: 1.0%. NCI Lifetime model risk: 8.8%. Prior Study Comparison: 02/22/2015 Bilateral Screening Mammogram, [facility]. 02/24/2016 Bilateral Screening Mammogram, [facility]. 06/14/2017 Bilateral Screening Mammogram, [facility]. 06/18/2017 Bilateral Diagnostic Ultrasound, [facility]. 06/23/2017 Right Diagnostic Mammogram, [facility]. 12/27/2017 Right Diagnostic Ultrasound, [facility]. 07/29/2018 Bilateral Diagnostic Mammogram, [facility]. 10/27/2019 Bilateral Screening Mammogram, [facility]. 02/07/2021 Bilateral Screening Mammogram, [facility]. 02/24/2021 Bilateral Diagnostic Ultrasound, [facility]. Tissue Density: The breast tissue is heterogeneously dense. This may lower the sensitivity of mammography. Findings: Analyzed By CAD. There is mammotome biopsy clip in the right breast. Decrease in size of circumscribed mass within the upper outer right breast middle to posterior depth measuring 1.7 cm, previously 2.1 cm. This is consistent with a cyst on ultrasound. Previously seen left upper outer breast mass is no longer visualized on today's examination and was consistent with a cyst. No new suspicious masses within either breast. No suspicious cluster microcalcifications within either breast. Overall Assessment: Benign, BI-RAD 2 Management: Screening Mammogram of both breasts in 1 year. A clinical breast exam by your physician is recommended on an annual basis and results should be correlated with mammographic findings. This exam should not preclude additional follow-up of suspicious palpable abnormalities. Results were given to the patient verbally at the time of exam. Electronically signed and approved by: García Caceres D.O.
== END | disposition home or self-care (01) ==
LOC: RADMAMWWP 09:39
PROVIDERS: ATTEND Family Medicine
DX: R92.8 Other abnormal and inconclusive findings on diagnostic imaging of breast (principal); N63.10 Unspecified lump in the right breast, unspecified quadrant; N63.20 Unspecified lump in the left breast, unspecified quadrant
CPT/HCPCS: 77062; 77066

== ENCOUNTER → 2022-05-09 | Outpatient (CLI) | payer MEDICAID ==
[2022-05-09 16:55] LABS: Basophils # (A) 0.09 X 10*3/uL (0.00-0.10); Basophils % (A) 1.1 %; Eosinophils # (A) 0.33 X 10*3/uL (0.04-0.35); Eosinophils % (A) 3.9 %; HCT 42.6 % (37.2-46.3); HGB 13.4 g/dL (12.0-15.0); Immature Grans, Automated 0.2 %; Lymphocytes # (A) 2.19 X 10*3/uL (0.90-5.00); Lymphocytes % (A) 26.2 %; MCH 28.9 pg (27.0-32.0); MCHC 31.5 g/dL (32.0-37.0); Mean Platelet Volume 12.8 fL (9.5-12.2); Monocytes # (A) 0.67 X 10*3/uL (0.20-1.00); NRBC Per 100 WBC 0 /100 WBCS (0.0-0.0); Neutrophils # (A) 5.06 X 10*3/uL (1.80-7.70); Neutrophils % (A) 60.6 %; Platelet Count 295 X 10*3/uL (140-440); RBC 4.63 X 10*6/uL (4.10-5.20); RDW 13.6 % (11.5-14.5); WBC 8.36 X 10*3/uL (4.50-10.00)
[2022-05-09 17:18] LABS: Follicle Stimulating Hormone 51.8 mIU/mL; Luteinizing Hormone 42.7 mIU/mL
[2022-05-09 17:48] LABS: T4, Free (Free Thyroxine) 1.21 ng/dL (0.800-1.800)
[2022-05-09 17:56] LABS: African American GFR (CKD) 117.9 (60.0-200.0); Albumin 4.5 g/dL (3.8-4.9); Albumin/Globulin Ratio 1.5 (1.60-3.17); Anion Gap 17.2 mmol/L (10.00-18.00); BUN/Creat Ratio 20.43 Ratio (12.00-20.00); Blood Urea Nitrogen 14.3 mg/dL (9.0-27.0); Calcium 9.6 mg/dL (8.7-10.3); Carbon Dioxide 20.8 mmol/L (20.0-27.5); Non-African American GFR(CKD) 101.7 (60.0-200.0); Potassium 4.3 mmol/L (3.5-5.5); Total Bilirubin 1.1 mg/dL (0.30-1.20); Total Protein 7.5 g/dL (6.2-8.2)
== END | disposition home or self-care (01) ==
LOC: LABWHC1 11:24
PROVIDERS: ATTEND Family Medicine
DX: E28.310 Symptomatic premature menopause (principal); E04.9 Nontoxic goiter, unspecified
CPT/HCPCS: 36415; 80053; 83001; 83002; 84144; 84439; 84443; 85025

== ENCOUNTER → 2022-07-30 | Outpatient (CLI) | payer MEDICAID ==
--- NOTE | 2022-07-30 17:28 | P.SLEEP ---
History of Present Illness DATE: 07/30/2022 CONSULTATION/NEW PATIENT EVALUATION HISTORY OF PRESENT ILLNESS/SLEEP-WAKE EVALUATION: 52-year-old lady had been ev aluated in the sleep center for possible obstructive sleep apnea hypopnea syndrome. SLEEP SCHEDULE: Usually sleep schedule from 11 PM to 6 AM on working days and from midnight until 7 AM on weekend. FALLING ASLEEP: No problems with falling asleep, no TV in bedroom. DURING SLEEP: Patient has loud snoring, sleeps usually on the side position, wakes up from sleep up to 4 times with episodes of palpitation, heartburn and sweating. No nocturia. No history of hypnogogical hallucinations, sleep paralysis, or cataplexy. DURING THE DAY/WAKE STATE: In the morning patient wake up tired, has problems with concentration and irritability. [place] sleepiness scale is 11, which indicates sleepiness. Occasionally patient takes 1 nap afternoon. PAST MEDICAL HISTORY: Episodes of atrial fibrillation, acid reflux, seasonal ALLERGY, sinuses problems, recently menopause. PAST SURGICAL HISTORY: Cholecystectomy. MEDICATIONS: Protonix 40 mg once a day, Paula 180 mg once a day, Nasacort nasal spray. SOCIAL HISTORY: Positive history of smoking for about 25 pack years, quit 10 years ago, alcohol consumption occasional. FAMILY HISTORY: Hypertension, heart problems, stroke, cancer. REVIEW OF SYSTEMS: Loud snoring, multiple awakenings from sleep, sleepiness during the day. No fevers. No double vision. No recent chest pain. No shortness of breath. No abdominal pain. No bleeding episodes. No blood in urine. No seizure episodes. PHYSICAL EXAMINATION: GENERAL: A pleasant patient without any distress. VITAL SIGNS: BP 132/82, HR 80, RR 12, weight 213 pounds, height 5 foot 6 inches, body mass index 34.3. HEENT: PERRLA, EOMI. Evaluation of oropharynx showed tongue protrudes midline, low position of soft palate Mallampati 3. NECK: Supple. No JVD. Thyroid is not palpable. 15 inches in circumference. LUNGS: Clear to percussion and to auscultation. Good air exchange. No wheezing or rhonchi. HEART: S1, S2 regular. No murmurs, gallops or rubs. ABDOMEN: Soft and nontender. Bowel sounds are present. No organomegaly appreciated. EXTREMITIES: No clubbing or cyanosis. OCCASIONAL BABYSITTER: Awake, alert, and oriented x3. Cranial nerves 2 to 7 intact. There is no fasciculation or atrophy noted. No focal deficits observed. ASSESSMENT: 1. Loud snoring, multiple awakenings from sleep, low position of soft palate Mallampati 3, retrognathia, sleepiness during the day [place] Sleepiness Scale increased to 11. Obstructive sleep apnea hypopnea syndrome. 2. Mild obesity body mass index 34.3. 3. History of atrial fibrillation episodes. 4. Seasonal ALLERGY. 5 acid reflux. 6 . Sinuses problems. 7. Menopause. 8. Status post cholecystectomy. PLAN: 1. Polysomnography for evaluation of patient's breathing during sleep. 2. CPAP/BiPAP titration if sleep study confirms obstructive sleep apnea-hypopnea syndrome. 3. Preferable position during sleep on the side. 4. No driving if patient feels any sleepiness. Patient is aware of civil and criminal liability for unsafe driving. 5. Sleep hygiene with regular sleep time for at least 7.5-8 hours. 6. Watching and losing weight. Thank you very much for referring this patient for consultation. Sincerely, Giovanni Kaur MD, PhD, FAASM. Diplomat of [place] [employer], Sleep Medicine Board by [place] [employer] [place] [employer] Roll Setter of [facility] Past Medical History Past Medical History: GERD/Reflux Additional Past Medical History / Comment(s): hx blood in stool,colonscopy negative family hx. colon cancer-cousin,aunt,grandfather History of Any Multi-Drug Resistant Organisms: None Reported Past Surgical History: No Surgical Hx Reported Additional Past Surgical History / Comment(s): EGD Past Anesthesia/Blood Transfusion Reactions: No Reported Reaction Additional Past Anesthesia/Blood Transfusion Reaction / Comment(s): never had anesthesia Past Psychological History: No Psychological Hx Reported Past Alcohol Use History: None Reported Additional Past Alcohol Use History / Comment(s): quit 2013, smoked for 20 yrs. Past Drug Use History: None Reported - Past Family History Father Family Medical History: Cancer Additional Family Medical History / Comment(s): lung Medications and Allergies Home Medications Medication Instructions Recorded Confirmed Type Ibuprofen [Motrin] 200 - 400 mg PO Q6HR PRN 04/17/15 09/15/18 History Fluticasone Nasal [place] [Flonase 2 spray NASAL DAILY 04/19/15 09/15/18 History Nasal [place]] Pantoprazole [Protonix] 40 mg PO DAILY #90 tablet. 04/19/15 09/15/18 Rx Fexofenadine/Pseudoephedrine 1 tab PO DAILY PRN 09/15/18 09/15/18 History [Paula-D 24 Hour Tablet] Hydrocodone/Acetaminophen [[place] 1 tab PO Q6HR PRN 3 Days #10 tab 09/15/18 Rx 5-325] Juleber 1 tab PO HS 09/15/18 09/15/18 History Allergies Allergy/AdvReac Type Severity Reaction Status Date / Time No Known Allergies Allergy Verified 09/15/18 07:57 Sleep Note - Sleep Note Sleep Note: Temperature: Pulse Rate: Respiratory Rate: Blood Pressure: SpO2: Height: Weight: BMI: Neck Circumference:
== END ==
LOC: SLEEP 14:35
PROVIDERS: ATTEND Internal Medicine
DX: G47.33 Obstructive sleep apnea (adult) (pediatric) (principal); E66.9 Obesity, unspecified; Z68.34 Body mass index [BMI] 34.0-34.9, adult; I48.91 Unspecified atrial fibrillation; K21.9 Gastro-esophageal reflux disease without esophagitis; J34.2 Deviated nasal septum; Z98.890 Other specified postprocedural states; Z99.89 Dependence on other enabling machines and devices
CPT/HCPCS: 99211

== ENCOUNTER 2022-11-03 06:55 | Day surgery (SDC) | payer MEDICAID ==
[2022-10-29 09:24] VITALS: BMI 33.9
[~2022-11-03 06:55] MED LIST changes: -LIDOCAINE 1% 20 ML VIAL (10MG/ML) FOR IV START INTRADERMA ONE; -LIDOCAINE 1% INJ 10MG/ML (20 ML MDV) ONE; -PROPOFOL 10 MG/ML 20 ML VIAL IV ONE
[2022-11-03] MEDS ORDERED: LACTATED RINGERS 1,000 ML IV ONE (07:12)
[2022-11-03 07:20] VITALS: TEMP 98.1
[2022-11-03] MEDS ORDERED: PROPOFOL 10 MG/ML 20 ML VIAL IV ONE (07:29)
--- NOTE | 2022-11-03 07:35 | P.GSHP ---
History of Present Illness H&P Date: 11/03/22 Chief Complaint: GERD, screening 52-year-old female here for upper and lower endoscopy. Patient with chronic reflux. Takes Protonix daily. States she has anemia at times. No change in bowel habits. Family history of colon cancer in her maternal grandmother, aunts and cousins.. Past Medical History Past Medical History: GERD/Reflux Additional Past Medical History / Comment(s): hx blood in stool,colonscopy negative,covid infection August 2020 approx,had sleep study September 09 History of Any Multi-Drug Resistant Organisms: None Reported Past Surgical History: Cholecystectomy Additional Past Surgical History / Comment(s): EGD,colonoscopy Past Anesthesia/Blood Transfusion Reactions: No Reported Reaction Additional Past Anesthesia/Blood Transfusion Reaction / Comment(s): no hx blood transfusion Smoking Status: Former smoker - Past Family History Father Family Medical History: Cancer Additional Family Medical History / Comment(s): lung. Paternal aunt esophageal CA Mother Family Medical History: No Reported History Additional Family Medical History / Comment(s): Maternal family hx. colon cancer-cousin,aunt,grandfather Medications and Allergies Home Medications Medication Instructions Recorded Confirmed Type Ibuprofen [Motrin] 200 - 400 mg PO Q6HR PRN 04/17/15 10/29/22 History Fluticasone Nasal [place] [Flonase 2 spray NASAL DAILY PRN 04/19/15 10/29/22 History Nasal [place]] Pantoprazole [Protonix] 40 mg PO DAILY #90 tablet. 04/19/15 10/29/22 Rx Fexofenadine HCl [Paula Allergy] 180 mg PO DAILY 10/29/22 10/29/22 History Furosemide [Lasix] 20 mg PO DAILY PRN 10/29/22 10/29/22 History Multivitamins, Thera [Multivitamin 1 tab PO DAILY 10/29/22 10/29/22 History (formulary)] Vitamin D3 (Unk Dose) 1 tab PO DAILY 10/29/22 10/29/22 History Allergies Allergy/AdvReac Type Severity Reaction Status Date / Time No Known Allergies Allergy Verified 10/29/22 09:11 Surgical - Exam Vital Signs Temp Pulse Resp BP Pulse Ox 98.1 F 66 18 128/58 99 11/03/22 07:19 11/03/22 07:19 11/03/22 07:19 11/03/22 07:19 11/03/22 07:19 Physical exam: General: Well-developed, well-nourished HEENT: Normocephalic, sclerae nonicteric Abdomen: Nontender, nondistended Extremities: No edema Neuro: Alert and oriented Assessment and Plan (1) GERD (gastroesophageal reflux disease) Narrative/Plan: Will proceed with upper and lower endoscopy Current Visit: No Status: Acute Code(s): K21.9 - GASTRO-ESOPHAGEAL REFLUX DISEASE WITHOUT ESOPHAGITIS SNOMED Code(s): 460523893
--- NOTE | 2022-11-03 07:55 | P.PCN ---
Date of Procedure: 11/03/22 Procedure(s) Performed: PREOPERATIVE DIAGNOSIS: GERD, screening, family history of colon cancer POSTOPERATIVE DIAGNOSIS: Mild gastritis, small gastric polyps, small hiatal hernia, diverticulosis PROCEDURE: 1. EGD with biopsy 2. Colonoscopy ANESTHESIA: MAC SURGEON: Destin Lacey M.D. SPECIMENS: Antrum, gastric polyp ENDOSCOPIC PROCEDURE: The patient was on the endoscopy table in the left decubitus position. The Olympus gastroscope was inserted into the oropharynx and passed under direct visualization to the region of the third portion of the duodenum. From that point the scope was slowly withdrawn inspecting all surfaces carefully. There were no neoplastic inflammatory or polypoid lesions throughout the duodenum. The pylorus was widely patent. The stomach was carefully inspected. There was gastritis present. A biopsy of the antrum took place to rule out H. pylori. The patient had a few small polyps in the stomach. One of which was removed using the cold biopsy forceps. Part reflect revealed a small hiatal hernia. The GE junction was present 2 cm above the diaphragmatic hiatus. The esophagus was then carefully examined. There were no neoplastic inflammatory or polypoid lesions throughout the visualized esophagus. The patient was kept on the endoscopy table in the left decubitus position. The Olympus colonoscope was inserted into the anus and passed under direct visualization to the base of the cecum. The appendiceal orifice was visualized. From that point the scope was slowly withdrawn inspecting all surfaces carefully. There were no neoplastic inflammatory or polypoid lesions throughout the cecum, ascending, transverse, descending, sigmoid and rectum. There was scattered sigmoid diverticulosis noted with tortuosity. Digital rectal examination was normal. The patient was taken to the recovery room in stable condition per anesthesia guidelines. RECOMMENDATIONS: Resume diet. Continue antiacids. Await biopsy results. Repeat upper and lower endoscopy 5 years.
[2022-11-03 08:11] VITALS: RESP 16
[2022-11-03 08:14] VITALS: BP 113/67; PULSE 67
== END 2022-11-03 08:41 | disposition home or self-care (01) ==
LOC: ORWHC2ENDO 06:55
PROVIDERS: ATTEND Surgery
DX: Z12.11 Encounter for screening for malignant neoplasm of colon (principal); K57.30 Diverticulosis of large intestine without perforation or abscess without bleeding; K56.2 Volvulus; K29.50 Unspecified chronic gastritis without bleeding; K31.7 Polyp of stomach and duodenum; D64.9 Anemia, unspecified; K44.9 Diaphragmatic hernia without obstruction or gangrene; Z80.0 Family history of malignant neoplasm of digestive organs; Z79.899 Other long term (current) drug therapy; Z90.49 Acquired absence of other specified parts of digestive tract; Z87.891 Personal history of nicotine dependence
CPT/HCPCS: 45378; 88305; 43239; J2704

== ENCOUNTER → 2022-11-18 | Outpatient (CLI) | payer MEDICAID ==
--- NOTE | 2022-11-18 17:39 | P.PN ---
Subjective DATE: 11/18/2022 FOLLOW UP VISIT. Patient returned to sleep center for follow-up visit to discuss results of sleep study and following plan. I discuss results of sleep test with patient in details. Apnea-hypopnea index is 2.9, which is in normal range. Most of the night during the test patient was on the side position. No significant periodic limb was have been documented. [place] sleepiness scale is 8, which is in normal range.. MEDICATIONS:1. Protonix 40 mg once a day 2. Paula 180 mg once a day 3. Nasonex nasal spray During physical exam: GENERAL: A pleasant patient without any distress. VITAL SIGNS: BP 118/81, HR 77, RR 16, weight 216.0, temperature 98.3, oxygen saturation at room air 75%. HEENT: PERRLA, EOMI. NECK: Supple. No JVD. LUNGS: Clear to percussion and to auscultation. Good air exchange. No wheezing or rhonchi. HEART: S1, S2 regular. ABDOMEN: Soft and nontender. EXTREMITIES: No clubbing or cyanosis. PAPER BAG INSPECTOR: Awake, alert, and oriented x3. No focal deficit. Impressions: 1. Minimal respiratory abnormalities during the sleep while patient is on the side position. Total apnea hypopnea index 2.9, which considered to be normal by today's criterias. 2. History of atrial fibrillation episodes. 3. Mild obesity. 4. seasonal ALLERGY. 5. history of sinus problems. 6. menopause. 7. status post cholecystectomy 8. acid reflux Plan: 1. Patient should've sleep on the side position, if necessary to use tennis ball technique . 2. Sleep hygiene with regular time in bed for at least 8 hours. 3. Precautions related to driving. No driving if feel any sleepiness. Patient is aware about civil and criminal liability for unsafe driving, promised to follow recommendations. 4. Losing weight 5. Follow up visit in 4-6 months or earlier if patient has any problems. Thank you very much for allowing me to participate in the management of your patient. Giovanni Kaur MD, PhD, FAASM. Diplomat of [place] [employer], Sleep Medicine Board by [place] [employer] Optical Model Maker And Tester of [facility] [place]
== END ==
LOC: 3 N SLEEP 15:31
PROVIDERS: ATTEND Internal Medicine
DX: G47.33 Obstructive sleep apnea (adult) (pediatric) (principal); E66.9 Obesity, unspecified; I48.91 Unspecified atrial fibrillation; K21.9 Gastro-esophageal reflux disease without esophagitis; Z79.899 Other long term (current) drug therapy; Z90.49 Acquired absence of other specified parts of digestive tract; J34.2 Deviated nasal septum; Z78.0 Asymptomatic menopausal state; Z99.89 Dependence on other enabling machines and devices; Z98.890 Other specified postprocedural states; Z87.891 Personal history of nicotine dependence
CPT/HCPCS: 99212

== ENCOUNTER → 2022-11-20 | Outpatient (CLI) | payer MEDICAID ==
--- NOTE | 2022-11-20 18:24 | CT ---
EXAMINATION TYPE: CT chest w con DATE OF EXAM: 11/20/2022 COMPARISON: 01/12/2022 HISTORY: nodules CT DLP: 386 mGycm, Automated exposure control for dose reduction was used. CONTRAST: Performed injected with 100 mL of Isovue 300. TECHNIQUE: Axial images were obtained at 5 mm thick sections. Reconstructed images are reviewed on [employer] computer in the coronal plane. FINDINGS: Portion of the thyroid visualized is normal. There is a 0.8 cm nodule in the periphery of the right mid lung. Series 4 image 32. This has enlarg ed from comparison. PET/CT is recommended for additional evaluation. There is a 0.7 cm pleural-based density in the lingula, series 4 image 40. This appears stable from c omparison. There is a 0.4 cm nodule within the periphery of the right mid lung. Series 4 image 28. This may have been present previously in retrospect. No enlarged mediastinal or hilar adenopathy is evident. The ascending aorta diameter at the level o f the main pulmonary artery is 3.4 cm. The main pulmonary artery diameter at the bifurcation is 2.3 cm. Small hiatal hernia is present. Limited CT sections are obtained through the upper abdomen. Abdomen is essentially unremarkable. Gall bladder is surgically absent. IMPRESSIONS: 1. There is an enlarging 0.8 cm peripheral right lung nodule. PET CT recommended for additional evalu ation. 2. Additional nodules appear stable in size and appearance. 3. Small hiatal hernia
== END | disposition home or self-care (01) ==
LOC: RADCTMAIN 10:52
PROVIDERS: ATTEND Family Medicine
DX: R91.8 Other nonspecific abnormal finding of lung field (principal); K44.9 Diaphragmatic hernia without obstruction or gangrene
CPT/HCPCS: 71260; Q9967

== ENCOUNTER → 2022-12-18 | Outpatient (CLI) | payer MEDICAID ==
--- NOTE | 2022-12-20 14:27 | PE ---
EXAMINATION TYPE: PET CT fusion skull to thigh DATE OF EXAM: 12/18/2022 CLINICAL INDICATION:Female, 52 years old with history of R91.8; TECHNIQUE: Following the intravenous administration of 12.6 mCi of F-18 FDG, whole body images are performed from the skull base to the midthigh. Images are reviewed on the computer in the coronal, a xial, and sagittal planes. Reconstructed rotating images are created on independent workstation and reviewed on the computer. A non-contrast CT is performed in conjunction with the PET scan. Glucose level 87 mg/dL CT DLP: 467 mGycm, Automated exposure control for dose reduction was used. COMPARISON: CT 11/20/2022, 01/12/2022 , PET/CT None, FINDINGS: Mediastinal SUV mean is 1.7. Hepatic parenchyma SUV mean is 2.6. SKULL BASE AND NECK: No suspicious radiotracer activity. Physiologic uptake within the palatine tons ils. CHEST, MEDIASTINUM, AND HILAR REGION: * Similar right upper lung a millimeter pulmonary nodule Max SUV 0.6. * No suspicious FDG activity within the thorax. ABDOMEN AND PELVIS: No suspicious radiotracer activity. MUSCULOSKELETAL STRUCTURES: No suspicious radiotracer activity. OTHER CT: Mild multilevel disc degeneration changes. Gallbladder surgically absent. Scattered colonic diverticula. Fat-containing umbilical hernia. IMPRESSION: 1. Right upper lung 8 mm pulmonary nodule with FDG activity below background levels. CT Surveillanc e recommended for this pulmonary nodule. 2. No suspicious FDG activity within the head and neck chest abdomen or pelvis visualized.
== END | disposition home or self-care (01) ==
LOC: RADPETMAIN 15:26
PROVIDERS: ATTEND Family Medicine
DX: R91.1 Solitary pulmonary nodule (principal)
CPT/HCPCS: 78815; A9552

== ENCOUNTER → 2023-04-13 | Outpatient (CLI) | payer MEDICAID ==
--- NOTE | 2023-04-18 14:44 | MM ---
Reason for Exam: Screening (asymptomatic). Last mammogram was performed 1 year(s) and 1 month(s) ago. Patient History: Menarche at age 16. First Full-Term at age 22. Postmenopausal. Patient has history of breast feeding. Patient used Hormonal Contraceptives for 15 years. Unspecified Hormone for 3 months. 06/23/2017, Benign Cyst Aspiration on the right side. 06/23/2017, Benign Core Biopsy on the right side. Risk Values: Ellen 5 year model risk: 0.9%. NCI Lifetime model risk: 8.6%. Prior Study Comparison: 10/27/2019 Bilateral Screening Mammogram, [facility]. 02/07/2021 Bilateral Screening Mammogram, [facility]. 03/24/2022 Bilateral MG 3D diag mammo w/cad ASHLEY, [facility]. Tissue Density: The breast tissue is heterogeneously dense. This may lower the sensitivity of mammography. Findings: Analyzed By CAD. The pattern is symmetrical and stable. No significant interval changes. Core marker is within the left breast No suspicious groups of microcalcifications, spiculated or lobular masses, architectural distortion or other secondary signs of malignancy are mammographically apparent. Overall Assessment: Benign, BI-RAD 2 Management: Screening Mammogram of both breasts in 1 year. A negative mammogram report should not preclude additional follow up of suspicious palpable abnormalities. Patient should continue monthly self breast exam. A clinical breast exam by your physician is recommended on an annual basis and results should be correlated with mammographic findings. Electronically signed and approved by: Giacomo Davidson D.O. Radiologis
== END | disposition home or self-care (01) ==
LOC: RADMAMWWP 16:40
PROVIDERS: ATTEND Internal Medicine Geriatric Medicine
DX: Z12.31 Encounter for screening mammogram for malignant neoplasm of breast (principal); Z78.0 Asymptomatic menopausal state
CPT/HCPCS: 77063; 77067

== ENCOUNTER → 2024-03-08 | Outpatient (CLI) | payer MEDICAID ==
--- NOTE | 2024-03-10 05:39 | CTL ---
EXAMINATION TYPE: CT Low Dose Lung DATE OF EXAM ORDERED: 03/08/2024 COMPARISON: Prior PET/CT December 18, 2022. Prior chest CT November 20, 2022 and older CTs CLINICAL INDICATION: Female, 53 years old with history of NICOTINE DEPENDENDCE Z87.891; PHH, personal tobacco use, nodules, Lung cancer screening, History of Smoking/tobacco use. TECHNIQUE: Low dose computed tomography scan was performed through the chest at 1 mm thick sections a nd reconstructed images in multiple planes at 1 mm and [address] DLP: 116.[address] CTDI: 3.4 mGy Automated exposure control for dose reduction was used. CT DIAGNOSTIC QUALITY: Satisfactory FINDINGS: Nodules: Scattered small nodules are present. No significant new or enlarging greater than 6 mm nonca lcified pulmonary nodules. RUL: None. RML: For reference there is stable 5 x 4 mm nodule abutting the fissure axial image 141. For referen ce there is stable 6 x 4 mm peripheral right middle lobe nodule axial image 161. RLL: None. BOBBI: None. Lingula: Stable 7 x 6 mm peripheral lingular nodule axial image 185. LLL: For reference there is 3 mm left lower lobe nodule axial image 135. LUNGS: COPD: Severity: None Fibrosis: Severity: None Lymph nodes: None Other findings: None RIGHT PLEURAL SPACE: Effusion: None Calcification: None Thickening: None Pneumothorax: None LEFT PLEURAL SPACE: Effusion: None Calcification: None Thickening: None Pneumothorax: None HEART: Heart Size: Normal Coronary Calcification: None Pericardial Effusion: None OTHER FINDINGS: Upper abdomen: Cholecystectomy clips are partially imaged Bony thorax: None Supraclavicular region: None Other: None IMPRESSION: Stable scattered small nodules. No new or enlarging greater than [address] LUNG RAD AND CT CHEST RECOMMENDATION: Lung-Rad 2 Benign Appearance or Behavior: Continue annual sc reening with LDCT in 12 months. S Modifier (other clinically significant findings): None [facility], , 03/10/2024 5:37 AM
== END | disposition home or self-care (01) ==
LOC: RADCTMAIN 16:29
PROVIDERS: ATTEND Internal Medicine Critical Care Medicine
DX: Z12.2 Encounter for screening for malignant neoplasm of respiratory organs (principal); R91.8 Other nonspecific abnormal finding of lung field; Z87.891 Personal history of nicotine dependence
CPT/HCPCS: 71271

== ENCOUNTER → 2024-03-13 | Outpatient (CLI) | payer MEDICAID ==
[2024-03-13 14:50] LABS: Basophils # (A) 0.11 X 10*3/uL (0.00-0.10); Basophils % (A) 1.5 %; Eosinophils # (A) 0.32 X 10*3/uL (0.04-0.35); Eosinophils % (A) 4.3 %; HCT 41.7 % (37.2-46.3); HGB 13.5 g/dL (12.0-15.0); Lymphocytes # (A) 2.06 X 10*3/uL (0.90-5.00); Lymphocytes % (A) 27.8 %; MCH 28.5 pg (27.0-32.0); MCHC 32.4 g/dL (32.0-37.0); Mean Platelet Volume 11.1 FL (9.5-12.2); Monocytes # (A) 0.68 X 10*3/uL (0.20-1.00); Monocytes % (A) 9.2 %; NRBC Per 100 WBC 0 X 10*3/uL (0.00-0.01); Neutrophils # (A) 4.22 X 10*3/uL (1.80-7.70); Neutrophils % (A) 56.9 %; Platelet Count 343 X 10*3/uL (140-440); RBC 4.74 X 10*6/uL (4.10-5.20); RDW 13.3 % (11.5-14.5); WBC 7.41 X 10*3/uL (4.50-10.00)
[2024-03-13 15:20] LABS: ALT 24 U/L (8-44); AST 26 U/L (13-35); Albumin 4.5 g/dL (3.8-4.9); Alkaline Phosphatase 135 U/L (41-126); BUN/Creat Ratio 13.44 Ratio (12.00-20.00); Blood Urea Nitrogen 12.1 mg/dL (9.0-27.0); Calcium 9.8 mg/dL (8.7-10.3); Carbon Dioxide 25.5 mmol/L (21.6-31.8); Chloride 103 mmol/L (96-109); Chol/HDL Ratio 2.96 Ratio; Glucose 94 mg/dL (70-110); LDL Cholesterol,Calculated 99.2 mg/dL (0.0-131.0); Potassium 4.4 mmol/L (3.5-5.5); Sodium 138 mmol/L (135-145); T4, Free (Free Thyroxine) 1.28 ng/dL (0.80-1.80); Total Bilirubin 0.9 mg/dL (0.3-1.2); Total Protein 7.5 g/dL (6.2-8.2)
== END | disposition home or self-care (01) ==
LOC: LABWHC1 09:22
PROVIDERS: ATTEND Family Medicine
DX: Z00.00 Encounter for general adult medical examination without abnormal findings (principal); E78.5 Hyperlipidemia, unspecified; E04.9 Nontoxic goiter, unspecified; D51.9 Vitamin B12 deficiency anemia, unspecified; E55.9 Vitamin D deficiency, unspecified; L20.9 Atopic dermatitis, unspecified
CPT/HCPCS: 36415; 80053; 80061; 82306; 82607; 82785; 84439; 84443; 85025